=== PATIENT | female | born 1950 | race Caucasian/White ===

== ENCOUNTER 2019-12-10 05:04 | Inpatient (IN) ==
--- NOTE | 2019-11-26 22:07 | PAT Medication Instructions ---
Medication Instructions Date of Service November 26, 2019 Home Medications Cbd Oil 1 dose PO DAILY aspirin 325 mg PO DAILY PRN black cohosh 1 cap PO DAILY PRN calcium carbonate [Calcium 500] 500 mg PO DAILY cranberry 500 mg PO DAILY multivitamin with minerals [Hair,Skin and Nails] 1 tab PO DAILY omega 2-kkv-vmf-fish oil [[place]-3] 1 cap PO DAILY ASK your surgeon for instructions aspirin 325 mg PO DAILY PRN STOP taking 2 weeks before surgery If surgery is within 2 weeks, stop taking as soon as possible. black cohosh 1 cap PO DAILY PRN cranberry 500 mg PO DAILY omega 2-rvy-ujo-fish oil [[place]-3] 1 cap PO DAILY DO NOT take the morning of surgery Cbd Oil 1 dose PO DAILY calcium carbonate [Calcium 500] 500 mg PO DAILY multivitamin with minerals [Hair,Skin and Nails] 1 tab PO DAILY Other Notes If you have any questions please call us at [phone] or [phone] or [phone] or [phone]
--- NOTE | 2019-11-27 13:55 | Anesthesiology Consultation ---
Date of Service November 27, 2019 Assessment & Plan (1) Encounter for pre-operative examination: COVID Status: As of 11/26 assessment, patient denies travel to endemic area, known exposure/sick contacts, or symptoms of COVID19. Patient's MADELAINE works at [employer] [place], but she has not seen her/been around her in > 1 month. Instructed to remain away from [facility] from now until after surgery; pt agreeable. Patient instructed to follow strict social distancing guidelines, wear a mask in public and avoid travel for 14 days prior to surgery. Preoperative COVID19 testing to be completed prior to surgery. Patient made aware to self-isolate as much as possible between COVID testing and surgery. Chart Review Chart Review: Acceptable Risk for Surgery and Patient seen in Pre Admission Testing Teaching & Discussion Instructed NPO after midnight before surgery, except medications with 15 cc of water. Medication instructions provided according to the PAT guidelines. History Surgery Operation Date: 12/10/19 10:15 Proposed Procedures p Left Shoulder Reversed Total Shoulder Arthroplasty, Distal Clavical Exision, Excision Calcific Deposit, Biceps Tenodesis, Bone Graft Glenoid Cyst with Humeral Head Autograft - Marino Bhagat MD Height/Weight Height: 5 ft 3 in Weight: 95.3 kg Allergies Allergy/AdvReac Type Severity Reaction Status Date / Time No Known Allergies Allergy Verified 11/26/19 08:02 Medications Home Medications Medication Instructions Recorded Confirmed Last Taken Cbd Oil 1 dose PO DAILY 11/26/19 11/26/19 Unknown aspirin 325 mg PO DAILY PRN 11/26/19 11/26/19 Unknown black cohosh 1 cap PO DAILY PRN 11/26/19 11/26/19 Unknown calcium carbonate [Calcium 500] 500 mg PO DAILY 11/26/19 11/26/19 Unknown cranberry 500 mg PO DAILY 11/26/19 11/26/19 Unknown multivitamin with minerals 1 tab PO DAILY 11/26/19 11/26/19 Unknown [Hair,Skin and Nails] omega 9-ojp-hhk-fish oil [[place]-3] 1 cap PO DAILY 11/26/19 11/26/19 Unknown Past Medical History Medical History (Updated 11/30/19 @ 08:17 by Abiodun Patino) Cardiac murmur Mild mitral and aortic regurgitation per 2019 echo Degenerative disc disease Osteoarthritis Prediabetes no meds Exercise / Class Metabolic Activity II 4-5 Yardwork/Stairs/Walk up hill (Denies CP or SOB with 1 FOS) Past Surgical History Surgical History History of arthroscopy of right knee History of carpal tunnel release Rt History of cataract surgery BL History of colonoscopy History of D&C x3 History of repair of rotator cuff Rt History of tonsillectomy Past Anesthesia History No Hx of Anesthesia Complications and No Family Hx of Anesthesia Complications History of PONV No Hx of PONV and No Hx of Motion Sickness Social History Smoking Status: Former smoker Do You Dip or Chew Tobacco: No Smoking End Date: 1970 Hx Alcohol Use: No Hx Substance Use: No substance use type: does not use Review of Systems Pt denies any recent chest pain, shortness of breath, palpitations, cough, fever or URI. Physical Exam Vital Signs BP: 113/72 P: 74bpm SPO2: 96% RA T: 98.0 F R: 16 Constitutional + obese ENMT Mouth: no dental restorations, no chipped teeth and no loose teeth Thyromental Distance: > or= 3.5 Finger Breadths (3.5) Mallampati Class: I Neck normal visual inspection; neck extension not limited Respiratory normal respiratory effort Auscultation: lungs clear to auscultation bilaterally Cardiovascular Rate/Rhythm: regular rate and regular rhythm Heart Sounds: no murmur Extremities: no edema Testing Laboratory Results 11/27/19 14:01 11/27/19 14:01 PT 10.3 Seconds (9.0-12.0) 11/27/19 14:01 INR 1.0 (0.9-1.1) 11/27/19 14:01 APTT 27.6 Seconds (21.0-31.0) 11/27/19 14:01 Hemoglobin A1c 6.1 % (4.5-5.6) H 11/27/19 14:01 Urine Color Yellow 11/27/19 14:01 Urine Appearance Clear (Clear) 11/27/19 14:01 Urine pH 6.5 (4.5-7.5) 11/27/19 14:01 Ur Specific [place] 1.015 (1.000-1.030) 11/27/19 14:01 Urine Protein Negative (Negative) 11/27/19 14:01 Urine Glucose (UA) Negative (Negative) 11/27/19 14:01 Urine Ketones Negative (Negative) 11/27/19 14:01 Urine Nitrite Negative (Negative) 11/27/19 14:01 Ur Leukocyte Esterase Negative (Negative) 11/27/19 14:01 Blood Type B Positive 11/27/19 14:01 Antibody Screen NEGATIVE 11/27/19 14:01 Electrocardiogram Date: 01/21/19 Findings: + NSR @ (69bpm with 1st degree AV block) Chest X-Ray Date: 11/27/19 Findings: + NAD Echocardiogram Date: 01/28/19 EF: 55% LV Function: normal Valvular Disease: + AI (mild) and + MR (mild)
--- NOTE | 2019-11-27 14:25 | XRay Report ---
XR chest Pre-admission PA/Lat CLINICAL HISTORY: pat preoperative COMPARISON STUDY: No previous studies for comparison. FINDINGS: The bones soft tissues and hemidiaphragms are normal. The cardiomediastinal silhouette is n ormal. The lungs are clear. The pulmonary vasculature is normal. IMPRESSION: Negative chest. ACT 112: Negative or not required by law. The above report was generated using voice recognition software. It may contain grammatical, syntax or spelling errors. Electronically signed by: Bryce Veras M.D. 11/27/2019 2:24 PM
[2019-11-27 16:15] LABS: Basophils # (auto) 0.03 K/uL (0-0.2); Basophils % (auto) 0.4 %; Eosinophils # (auto) 0.16 K/uL (0-0.5); Eosinophils % (auto) 2.1 %; Hemoglobin 14.4 g/dL (12.0-16.0); Immature Granulocytes # (auto) 0.01 K/uL (0.00-0.02); Immature Granulocytes % (auto) 0.1 %; Lymphocytes # (auto) 2.87 K/uL (1.2-3.4); Lymphocytes % (auto) 36.8 %; Mean Corpuscular Hemoglobin 29.3 pg (25-34); Mean Corpuscular Hgb Conc 33.5 g/dL (32-36); Mean Corpuscular Volume 87.6 fL (80-100); Mean Platelet Volume 10.6 fL (7.4-10.4); Monocytes # (auto) 0.51 K/uL (0.11-0.59); Monocytes % (auto) 6.5 %; Neutrophils # (auto) 4.22 K/uL (1.4-6.5); Neutrophils % (auto) 54.1 %; Platelet Count 205 K/uL (130-400); RDW Coefficient of Variation 13.4 % (11.5-14.5); RDW Standard Deviation 42.7 fL (36.4-46.3); Red Blood Count 4.91 M/uL (4.2-5.4)
[2019-11-27 16:21] LABS: Albumin Level 3.5 gm/dl (3.4-5.0); BUN Creatinine Ratio 22.3 (10-20); Calcium 8.7 mg/dl (8.5-10.1); Creatinine Clr Calc Pharmacy 84.6 ml/min; Est GFR (African American) 102.5; Est GFR (Non-African American) 88.4; Potassium 3.8 mmol/L (3.5-5.1)
[2019-11-27 16:25] LABS: Appearance Urine Clear (Clear); Bilirubin Urine Negative (Negative); Blood Urine Negative (Negative); Color Urine Yellow; Glucose Urine UA Negative (Negative); Ketones Urine Negative (Negative); Leukocyte Esterase Urine Negative (Negative); Nitrite Urine Negative (Negative); Protein Urine Negative (Negative); Specific Gravity Urine 1.015 (1.000-1.030); Urobilinogen Urine Negative (Negative); pH Urine 6.5 (4.5-7.5)
[2019-11-27 16:31] LABS: Partial Thromboplastin Time 27.6 Seconds (21.0-31.0); Prothrombin Time 10.3 Seconds (9.0-12.0)
[2019-11-28 07:17] LABS: Estimated Average Glucose 128 mg/dl; Hemoglobin A1C 6.1 % (4.5-5.6)
--- NOTE | 2019-12-09 18:29 | History and Physical Report ---
DATE OF ADMISSION: 12/10/2019 CHIEF COMPLAINT: Chronic left shoulder pain and weakness. HISTORY OF PRESENT ILLNESS: This is a 69-year-old female patient of Dr. Bhagat'dillon complaining of chronic left shoulder pain, longstanding, now progressively getting worse. She reports no trauma. She also has failed conservative treatment including aspirin, and CDB oil. An MRI confirmed an insufficient rotator cuff, calcific tendinitis and biceps tendinopathy. The patient wished to proceed with a left shoulder reverse total shoulder arthroplasty, distal clavicle excision, excision of calcific deposit, biceps tenodesis and bone graft of the glenoid cyst with humeral head autograft. PAST MEDICAL HISTORY: Heart murmur, peripheral neuropathy, osteoarthritis, sciatica, obesity. SOCIAL HISTORY: Nonsmoker and nondrinker. PAST SURGICAL HISTORY: Tonsillectomy, D and C x2, right rotator cuff, right carpal tunnel, right meniscus repair on the right knee, cataract surgery bilateral eyes. FAMILY HISTORY: Noncontributory. REVIEW OF SYSTEMS: Chronic left shoulder pain and weakness. Otherwise, denies any shortness of breath, chest pain, nausea, vomiting or any other joint complaints. MEDICATIONS: 1. Biotin 2500 mg daily. 2. Calcium 600 mg plus D daily. 3. Cranberry 1500 mg daily. 4. Duff 3 fish oil daily. 5. Black cohosh 40 mg 2 capsules when needed. 6. Aspirin 325 mg as needed. 7. Hemp oil as needed in the form of drops. ALLERGIES: No known drug allergies. PHYSICAL EXAMINATION: GENERAL: Well-developed, well-nourished 69-year-old female in no acute distress. She is alert and oriented x3 and pleasant. HEENT: Normocephalic, atraumatic. Extraocular motions are intact. Pupils are equal and reactive to light. HEART: Regular rate and rhythm with 1/6 murmur appreciated. LUNGS: Clear. ABDOMEN: Soft, nontender, bowel sounds are present. EXTREMITIES: Left shoulder reveals active range of motion to 140 degrees, passively to 165. She has pain and crepitation with passive and active range of motion. Neurologically and neurovascularly, she is intact in her left extremity. DIAGNOSES: Left shoulder rotator cuff insufficiency, acromioclavicular joint arthritis, calcific tendinitis, biceps tendinitis. She also has a history of heart murmur, peripheral neuropathy, osteoarthritis, sciatica, obesity. PLAN: The patient was advised of her diagnosis. Indications, risks, benefits, postop course have all been reviewed. The patient wished to proceed with a left shoulder reverse total shoulder arthroplasty, distal clavicle excision, excision of calcific deposit, biceps tenodesis and bone grafting of the glenoid cyst with humeral head autograft. Necessary consent forms, preoperative testing and clearances will be obtained.
[2019-12-10] MEDS ORDERED: dexAMETHasone 4 MG TAB PO SCH (06:00)
[2019-12-10] MEDS ORDERED: METOCLOPRAMIDE HCL 10 MG TABLET PO SCH (06:00)
[2019-12-10] MEDS ORDERED: CEFAZOLIN 2000MG 2,000 MG/15 ML SYR IV SCH (06:00)
[2019-12-10] MEDS ORDERED: ACETAMINOPHEN 500 MG TAB PO SCH (06:00)
[2019-12-10] MEDS ORDERED: CeleBREX 200 MG CAP PO SCH (06:00)
[2019-12-10] MEDS ORDERED: FAMOTIDINE 20 MG TAB PO SCH (06:00)
[2019-12-10] MEDS ORDERED: LR 15ML/HR IV SCH (06:00)
[2019-12-10] MEDS ORDERED: GABAPENTIN 300 MG CAP PO SCH (06:00)
[2019-12-10] MEDS ORDERED: BUPIVACAINE/EPINEPHRINE 0.25% 1:200,000 30 ML VIAL ONE (06:23)
[2019-12-10] MEDS ORDERED: fentaNYL citrate 100 MCG/2 ML VIAL ONE (06:27)
[2019-12-10] MEDS ORDERED: MIDAZOLAM HCL 1 MG/ML 2ML VIAL ONE (06:27)
[2019-12-10] MEDS ORDERED: PROPOFOL IV EMULSION 10 MG/ML 20 ML VIAL IV ONE (06:28)
[2019-12-10] MEDS ORDERED: ONDANSETRON INJ 2 MG/ML 2 ML VIAL ONE (06:29)
[2019-12-10] MEDS ORDERED: DEXAMETHASONE SOD INJ 4 MG/ML VIAL ONE (06:29)
[2019-12-10] MEDS ORDERED: ROCURONIUM BROMIDE 10 MG/ML 5 ML VIAL IV ONE (06:29)
[2019-12-10] MEDS ORDERED: ATROPINE SULFATE 0.1 MG/ML 10ML SYR IV PRN (06:42)
[2019-12-10] MEDS ORDERED: fentaNYL citrate 100 MCG/2 ML VIAL IV PRN (06:42)
[2019-12-10] MEDS ORDERED: PROMETHAZINE HCL 12.5 MG in SODIUM CHLORIDE 0.9% 50 ML IV PRN (06:42)
[2019-12-10] MEDS ORDERED: HYDROmorphone INJ 1 MG/ML SYRINGE IV PRN (06:42)
[2019-12-10] MEDS ORDERED: ONDANSETRON INJ 2 MG/ML 2 ML VIAL IV PRN ×2 (06:42→11:37)
[2019-12-10] MEDS ORDERED: ePHEDrine sulfate 50 MG/ML AMP IV PRN (06:42)
--- NOTE | 2019-12-10 07:13 | History & Physical Bridge Note ---
Date of Service December 10, 2019 History & Physical Bridge Note I have examined the patient, reviewed the History & Physical and in the interval since the performance of the History & Physical I have noted the following changes of clinical significance: no changes noted
[2019-12-10] MEDS ORDERED: TRANEXAMIC ACID / 0.7% NACL 1000MG/100ML BAG IV ONE (07:19)
[2019-12-10] MEDS ORDERED: BACITRACIN INJ 50,000 UNIT VIAL ONE (07:20)
[2019-12-10] MEDS ORDERED: TRANEXAMIC ACID / 0.7% NACL 1,000 MG/100 ML BAG IV STA (07:31)
[2019-12-10] MEDS ORDERED: TRANEXAMIC ACID / 0.7% NACL 1,000 MG/100 ML BAG IV ONE (08:00)
[2019-12-10] MEDS ORDERED: NEOSTIGMINE METHYLSULFATE 5 MG/5 ML SYR ONE (08:52)
[2019-12-10] MEDS ORDERED: GLYCOPYRROLATE 0.2 MG/ML VIAL ONE (08:53)
[2019-12-10] MEDS ORDERED: ePHEDrine sulfate 50 MG/ML AMP ONE ×2 (09:20)
--- NOTE | 2019-12-10 10:35 | Post Operative Brief Note ---
Immediate Post Op Note v1 Date of Surgery December 10, 2019 Pre & Post Diagnosis Operation Date: 12/10/19 07:15 Pre-Op Diagnosis: LEFT SHOULDER OSTEOARTHRITIS, CALCIFIC TENDONITIS & BICIPITAL TENDONITIS, GLENOHUMERAL OSTEOARTHRITIS, BONE CYST GLENOID, ACROMIOCLAVICULAR JOINT OSTEOARTHRITIS Post-Op Diagnosis: LEFT SHOULDER OSTEOARTHRITIS, CALCIFIC TENDONITIS & BICIPITAL TENDONITIS, GLENOHUMERAL OSTEOARTHRITIS, BONE CYST GLENOID, ACROMIOCLAVICULAR JOINT OSTEOARTHRITIS I identified the patient and participated in the time-out.: Yes Procedure Operation Date: 12/10/19 07:15 Actual Procedures p Left Reversed Total Shoulder Arthroplasty, Distal Clavical Exision, Excision Calcific Deposit, Biceps Tenodesis, Bone Graft Glenoid Cyst with Humeral Head Autograft(Left) - Marino Bhagat MD Surgeon Marino Bhagat MD Diagnostic Cardiac Sonographer JUAN PABLO Boo Estimated Blood Loss 50 Findings Consistent with Post-Op Diagnosis Specimens Bone cyst material and humeral head Drains Hemovac Drain Anesthesia Type General Regional Complications none Disposition Accompanied Patient To Recovery: No Disposition: Recovery Room Overlapping Procedure I was immediately available: during the entire case.
--- NOTE | 2019-12-10 10:52 | Operative Report ---
Post Operative Report Pre & Post Diagnosis Operation Date: 12/10/19 07:15 Pre-Op Diagnosis: LEFT SHOULDER OSTEOARTHRITIS, CALCIFIC TENDONITIS & BICIPITAL TENDONITIS, GLENOHUMERAL OSTEOARTHRITIS, BONE CYST GLENOID, ACROMIOCLAVICULAR JOINT OSTEOARTHRITIS Post-Op Diagnosis: LEFT SHOULDER OSTEOARTHRITIS, CALCIFIC TENDONITIS & BICIPITAL TENDONITIS, GLENOHUMERAL OSTEOARTHRITIS, BONE CYST GLENOID, ACROMIOCLAVICULAR JOINT OSTEOARTHRITIS I identified the patient and participated in the time-out.: Yes Procedure Operation Date: 12/10/19 07:15 Actual Procedures p Left Reversed Total Shoulder Arthroplasty, Distal Clavical Exision, Excision Calcific Deposit, Biceps Tenodesis, Bone Graft Glenoid Cyst with Humeral Head Autograft(Left) - Marino Bhagat MD Surgeon Marino Bhagat MD Sales Account Leader JUAN PABLO Boo Estimated Blood Loss 50 Findings Consistent with Post-Op Diagnosis Specimens Humeral head and curetted bone and bone cyst material and distal clavicle Drains 2 Hemovac Anesthesia Type General Regional Complications none Disposition Accompanied Patient To Recovery: No Disposition: Recovery Room Indications 69-year-old female with chronic osteoarthritis glenohumeral joint with calcific tendinitis of the infraspinatus and AC joint osteoarthritis. On MRI she has a very large subchondral cyst of the glenoid appears to be a large subchondral bone cyst. There is other smaller bone cyst noted and subchondral bone of the glenoid. She is not 100% [id number] however she does have moderately advanced glenohumeral osteoarthritis. Rotator cuff has some incomplete tearing of the supraspinatus with tendinopathy and calcific tendinitis. Description of Procedure The patient was taken to the operating room and anesthetized under regional block and general anesthetic. The patient was positioned on the operating table in a 30 beachchair position with a towel roll under the medial border of the left scapula. The arm was draped free to be able to manipulate the shoulder as needed. The left upper extremity was prepped and draped in usual sterile fashion. Exam demonstrated 140 degrees of flexion, 80 degrees of abduction, 45 degrees external rotation, 45 degrees internal rotation.. An anterior deltopectoral approach was performed. A longitudinal incision was made in the deltopectoral interval. The skin was incised sharply. Subcutaneous flaps were elevated off the fascia. The cephalic vein was dissected out and retracted lateral with the deltoid. The clavipectoral fascia was divided at the lateral margin of the conjoined tendon and extended up to the CA ligament. The following findings were noted: The rotator cuff was intact with some chronic bursitis and a calcium deposit identified in the infraspinatus. The infraspinatus calcium deposit was verified with a spinal needle barbotage into the capsule deposit and they were able to open it up and excised the capsular material with a rongeur leaving a small defect. The upper centimeter of the pectoralis was released for inferior exposure. The biceps tendon findings demonstrated intact biceps tendon with some chronic tenosynovitis.. the biceps tendon was tenodesed to the pectoralis tendon with #2 FiberWire. The proximal biceps was resected. The subscapularis tendon was taken down off the lesser tuberosity using a subperiosteal dissection. A #1 Vicryl traction suture was placed into the free end of the subscapularis tendon and capsule. The subscapular muscle fibers were split longitudinally at the level of the circumflex vessels. The circumflex vessels were identified and tied off with silk ties and divided laterally. A Kitner elevator was used to free up the inferior fibers of the subscapularis off of the capsule. The axillary nerve was identified with a tug test and protected with a blunt Judith retractor between the nerve and the capsule. The subscapularis tendon was then taken down off of the lesser tuberosity subperiosteally and subperiosteal dissection was performed along the neck of the humerus as the arm is gradually externally rotated exposing the humeral head. The humeral head findings d emonstrated inferior humeral osteophytes and articular thinning and wear consistent with grade III chondromalacia. retractors were readjusted and the inferior osteophytes were all resected using an artist chisel. A Deras elevator was used to assist in releasing the capsule of the neck of the humerus. The capsule was divided with Kaur scissors down to the glenoid released off the anterior glenoid and the rotator interval was released to meet the capsular release and a 360 release of the subscapularis was accomplished. A Fukuda retractor was placed into the joint retracting the humeral head posterior. Glenoid findings demonstrated grade 3 close to grade IV chondromalacia with some subchondral cysts in the inferior posterior glenoid. Degenerative changes glenoid labrum and tendinopathy biceps intra-articular segment.. The labrum and biceps tendon was resected. an anterior-inferior and posterior inferior capsular release were performed with electrocautery and a Deras elevator on bone with the axillary nerve protected inferiorly by the retractor. Attention was then taken to the humeral preparation. The cutting guide was placed into the humeral head. It was positioned at 20 of retroversion. Oscillating saw was used to resect the humeral head giving the cut above the level of the posterior rotator cuff insertion site. The humerus was then prepared for the stem. I used the ascend flex stem from [employer]. The sizing broaches were used followed by trial broaches up to a size 3B long which had the appropriate fit and fill. The appropriate sized cut protector was placed. The humerus was then retracted posterior to the glenoid. The glenoid was sized for a 25 mm. The guide for the baseplate was positioned in a 10 inferior tilt and the central drill hole was made. The reamer for the 25 baseplate was used. The central drill was widened for the peg. After the reaming I was able to identify some of the cysts and do curettage of the cysts with an angled curette. The large subchondral cyst was curetted out some of the material sent for specimen. The appearance was a benign appearing large subchondral cyst. After this was thoroughly curetted out the bone cysts were bone grafted with cancellus bone graft obtained from the humeral head cut. Bone tamp was used and 1 large cyst was accessed through the central peg hole wall and through that opening where able to placed bone graft into the cyst and then placed a drill on reversed to impact the graft into position and leave room for the peg. The 25 mm aequalis hydroxyapatite-coated baseplate was impacted into position. The base plate was transfixed with superior and inferior locking screws and anterior and posterior compression screws with stable fixation. The fan reamer was used for the standard 36 millimeter glenoid sphere. After irrigation the standard 36 mm glenoid sphere was impacted onto the baseplate and the screw was tightened. Attention was taken back to the humerus. The cut protector was removed and the high offset +0 humeral tray trial was assembled to the trial stem rotated appropriately to get bony coverage and then screwed in position. A trial reduction was performed. A +6 x 36 trial insert demonstrated good stability and no shuck. The trials were removed. 3 drill holes are made into the harder bone in the bicipital groove area and 3 #5 FiberWire sutures were placed transosseously. The canal was irrigated with antibiotic solution with bacitracin. The final component was assembled. The final component was ascend flex 3B long humeral stem assembled to +0 high offset humeral tray with 36+6 humeral polyethylene insert. This was then impacted into the humerus with a tight press-fit. It was reduced to the glenoid sphere. Stability was verified. Subscapularis was repaired with the #5 FiberWire sutures using Meir-Dimitri suture technique. Lateral row soft tissue repair was performed with #2 FiberWire [id number] sutures. The pectoralis was repaired with #2 FiberWire [id number]-[id number] sutures reinforcing the biceps tendon tenodesis. The arm was taken through a range of motion which demonstrated 140 degrees flexion 45 degrees external rotation and 90 degrees abduction without tension on repair. The implant was stable through the range of motion tested. The wound was copiously irrigated. Attention was taken to the distal clavicle excision. A transverse incision was made across the distal clavicle about 3 cm. Subcutaneous flaps elevated off the fascia and the fascia was divided longitudinally and reflected off the distal clavicle which was excised with an oscillating saw removing 1 cm. The distal clavicle had bone spurs and arthritic changes consistent with osteoarthritis. After irrigation the deltoid trapezius fascia was repaired with [id number] #2 FiberWire sutures. The subcutaneous tissues were closed with interrupted 2-0 Vicryl sutures and skin closed with cuong. 2 Hemovac drains were placed. The deltopectoral interval was closed with lbgfrq-[id number] #1 Vicryl sutures. The subcutaneous tissues were closed with 2-0 Vicryl sutures. The skin was closed with cuong. Sterile dressings were applied and a shoulder immobilizer. JUAN PABLO Boo my physician commercial real estate assistant assisted in the procedure to the entire procedure including patient positioning arm positioning prepping and draping soft tissue retraction instrument management suture management and performed the subcutaneous and skin closure and will participate in the postoperative care of the patient. I attest to the content of the Intraoperative Record and any orders documented therein. Any exceptions are noted below.
--- NOTE | 2019-12-10 11:08 | XRay Report ---
XR shoulder LT min 2V routine CLINICAL HISTORY: Post shoulder surgery COMPARISON: None. DISCUSSION: There are postsurgical changes of a reverse total left shoulder arthroplasty. There are o verlying skin cuong and surgical drains. There is air present in the soft tissues consistent with r ecent surgery. There is no dislocation. There are left lower lung zone airspace opacities statistical ly atelectatic. IMPRESSION: Postsurgical changes of a reverse total left shoulder arthroplasty. ACT 112: Negative or not required by law. Electronically signed by: Hernandez Bruner M.D. 12/10/2019 11:06 AM
--- NOTE | 2019-12-10 11:14 | Anesthesiology Progress Note ---
Date of Service December 10, 2019 Anesthesia Post Procedure Vital Signs Vital Signs: Temp Pulse Pulse Resp BP Pulse Ox 12/10/19 11:00 95 H 23 158/82 H 94 12/10/19 10:50 104 H 22 160/84 H 97 12/10/19 10:40 105 H 25 H 150/86 H 95 12/10/19 10:34 36.0 C L 100 H 25 H 158/81 H 96 12/10/19 06:05 69 18 132/69 97 12/10/19 05:31 36.7 C 72 20 157/89 H 98 Transfer of Care Handoff Completed per policy Notes Mental Status: alert / awake / arousable and participated in evaluation Patient Amnestic to Procedure: Yes Nausea / Vomiting: adequately controlled Pain: adequately controlled Airway Patency, RR, SpO2: stable & adequate BP & HR: stable & adequate Hydration State: stable & adequate Anesthetic Complications: no major complications apparent and Pt Satisfied with anesthetic care
[2019-12-10] MEDS ORDERED: bisacodyL 10 MG SUPP PR PRN (11:37)
[2019-12-10] MEDS ORDERED: NALOXONE HCL 0.4 MG/1 ML VIAL/CARP IV PRN (11:37)
[2019-12-10] MEDS ORDERED: MAGNESIUM HYDROXIDE SUSP 30 ML UDC PO PRN (11:37)
[2019-12-10] MEDS ORDERED: ASPIRIN 325 MG ECTAB PO PRN (11:37)
[2019-12-10] MEDS: SODIUM CHLORIDE 0.9% 1000ML 1,000 ML IV SCH ×2 (12:06→22:02)
[2019-12-10] MEDS: TRAMADOL HCL 50 MG TABLET PO PRN (12:11)
--- NOTE | 2019-12-10 13:19 | Hospitalist Consultation ---
Date of Consultation December 10, 2019 Assessment & Plan (1) S/P shoulder replacement: This is a 69-year-old female with PMH of prediabetes, HLD and OA who is POD#0 s/p L reverse TSA by Dr. Bhagat. -POD#0 s/p L reverse TSA by Dr. Bhagat. -Pt is doing well post-operatively -Per ortho for pain control, wound care, anticoagulation and activities -Monitor H&H (pre-op hgb 15 from Jul 202, EBL 20ml), continue incentive spirometry, PT/OT when appropriate (2) Prediabetes: A1c of 6.0 in Jul. Repeat pending -Diabetic diet, SSI while in-patient -BSG AC HS (3) HLD (hyperlipidemia): Fish oil supplementation held by primary service PCP: [place] Dispo: Per primary service Thank you for this consultation. We will follow the patient with you during their hospital stay. You can reach a member of the [facility] 24/12 via pager @ [phone]. Patient seen in collaboration with Dr. Hernandez. Please see addendum. Supervising Physician Co-Signing Physician Notes HISTORY: Record reviewed. Patient interviewed and examined. Care coordinated with Crystal Alexander PA-C. Please refer to her documentation for complete history. Briefly, 69 YO F with history of prediabetes and dyslipidemia. Underwent left reversed should arthroplasty earlier today by Dr. Bhagat. Doing well postoperatively. No chest pain, cough, SOB, nausea, vomiting. Pain well-controlled. EXAM: General- no distress Lungs- clear to auscultation; no respiratory distress Cardiovascular- RRR; II-III/ systolic murmur at base; no gallop; no JVD; no pretibial edema Abdomen- + bowel sounds, soft, nontender Extremities- no cyanosis; no calf tenderness ; LUE immobilized Neuro- alert, oriented Skin- warm & dry DATA: FBS this morning 105. ASSESSMENT AND PLAN: S/P POD # 0. HEART MURMUR Echo 2019 showed trileaflet aortic valve, mild aortic regurgitation, mild mitral regurgitation, trace tricuspid regurgitation. Please refer to JUAN PABLO Alexander's documentation for discussion of other issues. Thank you for this consultation. We will follow the patient with you during their hospital stay. My cell # is [phone]. You can reach a member of the [facility] Team 24/12 via pager @ [phone]. History of Present Illness Reason for Consultation: Postop medical management Attending Physician: Marino Bhagat MD History of Present Illness This is a 69-year-old female with PMH of prediabetes, HLD and OA who is POD#0 s/p L reverse TSA by Dr. Bhagat. Patient is feeling well postoperatively. Denies surgical site pain. Tolerating diet without nausea. Denies fever, chills, congestion, cough, chest pain, shortness of breath, vomiting, abdominal pain, dysuria, diarrhea or constipation. Last bowel movement was this morning. PCP is Dr. Thibodeaux. Allergies Allergy/AdvReac Type Severity Reaction Status Date / Time No Known Allergies Allergy Verified 11/26/19 08:02 Home Medications Home Medications Medication Instructions Recorded Confirmed Type Cbd Oil 1 dose PO DAILY 11/26/19 12/10/19 History aspirin 325 mg PO DAILY PRN 11/26/19 12/10/19 History black cohosh 1 cap PO DAILY PRN 11/26/19 11/26/19 History calcium carbonate [Calcium 500] 500 mg PO DAILY 11/26/19 11/26/19 History cranberry 500 mg PO DAILY 11/26/19 11/26/19 History multivitamin with minerals 1 tab PO DAILY 11/26/19 12/10/19 History [Hair,Skin and Nails] omega 6-zst-rpr-fish oil [[place]-3] 1 cap PO DAILY 11/26/19 11/26/19 History Patient History Medical History (Updated 12/10/19 @ 13:53 by Crystal Alexander PA-C) Degenerative disc disease HLD (hyperlipidemia) Osteoarthritis Prediabetes Surgical History History of arthroscopy of right knee History of carpal tunnel release Rt History of cataract surgery BL History of colonoscopy History of D&C x3 History of repair of rotator cuff Rt History of tonsillectomy Family History (Updated 12/10/19 @ 13:53 by Crystal Alexander PA-C) Grandmother (Maternal) Diabetes Other Heart disease No family history of adverse response to anesthesia Social History Preferred Language: Bengali Communication Ability: Effective 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 Physical Exam Physical Exam: General Appearance: WD/WN, vitals as above, NAD, sitting up in bed eating lunch, pleasant, conversing easily Head: normocephalic, atraumatic Eyes: normal inspection, PERRL, conjunctivae normal, anicteric sclerae ENT: external ear and nose normal, oropharynx normal Neck: trachea midline, no thyromegaly normal visual inspection Respiratory: normal respiratory effort, lungs clear to auscultation, no wheeze, rales, rhonchi Cardiovascular: regular rate, rhythm, no murmur appreciated, normal peripheral pulses Chest: normal inspection of chest Abdomen/GI: normal bowel sounds, soft, nontender, no hepatosplenomegaly Extremities/Musculoskeletal: + L shoulder surgical dressing clean, dry, intact. + drain visualized. Distal LUE strength intact. Normal cap refill, no cyanosis or clubbing Neurologic: PERRL, CN's II-XI intact bilaterally and moves all extremities Psychiatric: A+Ox3, euthymic affect Skin: no rashes, normal color, warm/dry Results & Data Results & Data ([facility]) Vital Signs (Past 12 Hours) Vital Signs Temp Pulse Pulse Resp BP Pulse Ox 12/10/19 12:30 36.4 C L 96 H 16 122/81 92 12/10/19 12:01 36 C L 96 H 18 133/73 92 12/10/19 11:30 36.5 C 95 H 18 159/83 H 94 12/10/19 11:10 36.3 C L 96 H 22 157/86 H 96 12/10/19 11:00 95 H 23 158/82 H 94 12/10/19 10:50 104 H 22 160/84 H 97 12/10/19 10:40 105 H 25 H 150/86 H 95 12/10/19 10:34 36.0 C L 100 H 25 H 158/81 H 96 12/10/19 06:05 69 18 132/69 97 12/10/19 05:31 36.7 C 72 20 157/89 H 98
[2019-12-10] MEDS ORDERED: CARBOHYDRATES FOR HYPOGLYCEMIA PO PRN (13:20)
[2019-12-10] MEDS ORDERED: GLUCOSE 10 TABS/TUBE PO PRN (13:20)
[2019-12-10] MEDS ORDERED: GLUCOSE 40% GEL 15 GM TUBE PO PRN (13:20)
[2019-12-10] MEDS ORDERED: DEXTROSE 50% 50 ML SYRINGE IV PRN (13:20)
[2019-12-10] MEDS ORDERED: GLUCAGON FOR INJ 1 MG VIAL SQ PRN (13:20)
[2019-12-10] MEDS: ACETAMINOPHEN 500 MG TAB PO SCH ×2 (13:48→22:02)
[2019-12-10] MEDS: CEFAZOLIN 2000MG 2,000 MG/15 ML SYR IV SCH (16:09)
[2019-12-10] MEDS ORDERED: COUGH DROP (SUGAR FREE) LOZ 24 LOZ/1 BOX BUCCAL PRN (16:21)
[2019-12-10] MEDS: INSULIN ASPART 100 UNITS/ML 3 ML PEN SC SCH ×2 (17:53→20:37)
[2019-12-10] MEDS: SENNA 8.6 MG TAB PO SCH (20:37)
[2019-12-10] MEDS: DOCUSATE SODIUM 100 MG CAP PO SCH (20:37)
[2019-12-11] MEDS: CEFAZOLIN 2000MG 2,000 MG/15 ML SYR IV SCH (00:55)
[2019-12-11] MEDS: TRAMADOL HCL 50 MG TABLET PO PRN ×4 (04:32→22:39)
[2019-12-11] MEDS: HYDROmorphone INJ 0.5 MG/0.5 ML SYR IV PRN ×2 (05:30→10:50)
[2019-12-11] MEDS: ACETAMINOPHEN 500 MG TAB PO SCH ×3 (05:31→21:10)
[2019-12-11 06:27] LABS: Basophils # (auto) 0.01 K/uL (0-0.2); Basophils % (auto) 0.1 %; Eosinophils # (auto) 0.01 K/uL (0-0.5); Eosinophils % (auto) 0.1 %; Hematocrit (blood only) 36.7 % (37-47); Hemoglobin 12.3 g/dL (12.0-16.0); Immature Granulocytes # (auto) 0.04 K/uL (0.00-0.02); Immature Granulocytes % (auto) 0.3 %; Lymphocytes % (auto) 16.2 %; Mean Corpuscular Hemoglobin 29.2 pg (25-34); Mean Corpuscular Hgb Conc 33.5 g/dL (32-36); Mean Corpuscular Volume 87.2 fL (80-100); Mean Platelet Volume 9.8 fL (7.4-10.4); Monocytes # (auto) 0.97 K/uL (0.11-0.59); Monocytes % (auto) 6.9 %; Neutrophils # (auto) 10.83 K/uL (1.4-6.5); Neutrophils % (auto) 76.4 %; Platelet Count 176 K/uL (130-400); RDW Coefficient of Variation 13.8 % (11.5-14.5); Red Blood Count 4.21 M/uL (4.2-5.4); White Blood Count 14.16 K/uL (4.8-10.8)
[2019-12-11 06:52] LABS: BUN Creatinine Ratio 18.5 (10-20); Creatinine Clr Calc Pharmacy 80.4 ml/min; Est GFR (Non-African American) 87.2; Potassium 3.8 mmol/L (3.5-5.1)
[2019-12-11 07:08] LABS: Estimated Average Glucose 128 mg/dl; Hemoglobin A1C 6.1 % (4.5-5.6)
--- NOTE | 2019-12-11 07:46 | Anesthesiology Progress Note ---
Date of Service December 11, 2019 Anesthesia Post Procedure Vital Signs Vital Signs: Temp Pulse Pulse Resp BP Pulse Ox 12/11/19 07:30 36.5 C 71 16 100/63 92 12/11/19 04:21 36.7 C 82 14 113/73 92 12/10/19 23:26 36.6 C 78 16 108/65 93 12/10/19 19:09 36.6 C 95 H 17 103/62 92 12/10/19 14:07 97 H 16 116/73 93 12/10/19 13:25 99 H 16 120/72 93 12/10/19 12:30 36.4 C L 96 H 16 122/81 92 12/10/19 12:01 36 C L 96 H 18 133/73 92 12/10/19 11:30 36.5 C 95 H 18 159/83 H 94 12/10/19 11:10 36.3 C L 96 H 22 157/86 H 96 12/10/19 11:00 95 H 23 158/82 H 94 12/10/19 10:50 104 H 22 160/84 H 97 12/10/19 10:40 105 H 25 H 150/86 H 95 12/10/19 10:34 36.0 C L 100 H 25 H 158/81 H 96 Pain Intensity Left Shoulder: Pain Intensity: 3 Notes Mental Status: alert / awake / arousable and participated in evaluation Patient Amnestic to Procedure: Yes Nausea / Vomiting: adequately controlled Pain: adequately controlled Airway Patency, RR, SpO2: stable & adequate BP & HR: stable & adequate Hydration State: stable & adequate Anesthetic Complications: no major complications apparent
[2019-12-11] MEDS: DOCUSATE SODIUM 100 MG CAP PO SCH ×2 (08:31→21:10)
[2019-12-11] MEDS: MULTIVITAMIN TAB PO SCH (08:32)
[2019-12-11] MEDS: CALCIUM CARBONATE 1250MG TAB PO SCH (08:32)
[2019-12-11] MEDS ORDERED: MULTIVITAMIN WITH MINERALS PO SCH (09:00)
--- NOTE | 2019-12-11 09:14 | Orthopedic Progress Note ---
Date of Service December 11, 2019 Assessment & Plan (1) S/P shoulder replacement: Postop day 1 status post left reverse total shoulder arthroplasty PT/OT protocols. Nonweightbearing left upper extremity. DVT prophylaxis with aspirin and SCDs. Continue current pain regimen. DC planning-patient planning for discharge to home when stable. Admission and Anticipated Discharge Date Admission Date: December 10, 2019 Subjective Postop day 1 Patient sitting at the bedside. Awake and alert. Pain is controlled. No complaints this morning. Denies shortness of breath, chest pain, lightheadedness. Physical Exam Physical Exam: Dressings are clean, dry, and intact. Hemovac is functioning and previous shift was 25 mL's. Neurovascular is intact. Sling is in place. Moving her fingers and wrist well. Results & Data ([facility]) Vital Signs (Past 12 Hours) Vital Signs Temp Pulse Resp BP Pulse Ox 12/11/19 07:30 36.5 C 71 16 100/63 92 12/11/19 04:21 36.7 C 82 14 113/73 92 12/10/19 23:26 36.6 C 78 16 108/65 93 Laboratory Results Laboratory Results WBC 14.16 K/uL (4.8-10.8) H 12/11/19 05:51 RBC 4.21 M/uL (4.2-5.4) 12/11/19 05:51 Hgb 12.3 g/dL (12.0-16.0) 12/11/19 05:51 Hct 36.7 % (37-47) L 12/11/19 05:51 MCV 87.2 fL (80-100) 12/11/19 05:51 MCH 29.2 pg (25-34) 12/11/19 05:51 MCHC 33.5 g/dL (32-36) 12/11/19 05:51 RDW Std Deviation 44.0 fL (36.4-46.3) 12/11/19 05:51 RDW Coeff of Tanna 13.8 % (11.5-14.5) 12/11/19 05:51 Plt Count 176 K/uL (130-400) 12/11/19 05:51 MPV 9.8 fL (7.4-10.4) 12/11/19 05:51 Immature Gran % (Auto) 0.3 % 12/11/19 05:51 Neut % (Auto) 76.4 % 12/11/19 05:51 Lymph % (Auto) 16.2 % 12/11/19 05:51 [place] % (Auto) 6.9 % 12/11/19 05:51 Eos % (Auto) 0.1 % 12/11/19 05:51 Baso % (Auto) 0.1 % 12/11/19 05:51 Neut # (Auto) 10.83 K/uL (1.4-6.5) H 12/11/19 05:51 Lymph # (Auto) 2.30 K/uL (1.2-3.4) 12/11/19 05:51 [place] # (Auto) 0.97 K/uL (0.11-0.59) H 12/11/19 05:51 Eos # (Auto) 0.01 K/uL (0-0.5) 12/11/19 05:51 Baso # (Auto) 0.01 K/uL (0-0.2) 12/11/19 05:51 Immature Gran # (Auto) 0.04 K/uL (0.00-0.02) H 12/11/19 05:51 PT 10.3 Seconds (9.0-12.0) 11/27/19 14:01 INR 1.0 (0.9-1.1) 11/27/19 14:01 APTT 27.6 Seconds (21.0-31.0) 11/27/19 14:01 PTT Ratio 1.0 11/27/19 14:01 Sodium 141 mmol/L (136-145) 12/11/19 05:51 Potassium 3.8 mmol/L (3.5-5.1) 12/11/19 05:51 Chloride 111 mmol/L (98-107) H 12/11/19 05:51 Carbon Dioxide 25 mmol/L (21-32) 12/11/19 05:51 Anion Gap 5.0 (3-11) 12/11/19 05:51 BUN 13 mg/dl (7-18) 12/11/19 05:51 Creatinine 0.70 mg/dl (0.6-1.2) 12/11/19 05:51 Est Cr Clr Drug Dosing 80.4 ml/min 12/11/19 05:51 Est GFR ( Amer) 101.0 12/11/19 05:51 Est GFR (Non-Af Amer) 87.2 12/11/19 05:51 BUN/Creatinine Ratio 18.5 (-20) 12/11/19 05:51 Glucose 104 mg/dl (70-99) H 12/11/19 05:51 POC Glucose 103 mg/dl (70-99) H 12/11/19 08:13 Estimat Average Glucose 128 mg/dl 12/11/19 05:51 Hemoglobin A1c 6.1 % (4.5-5.6) H 12/11/19 05:51 Calcium 8.0 mg/dl (8.5-10.1) L 12/11/19 05:51 Albumin 3.5 gm/dl (3.4-5.0) 11/27/19 14:01 Urine Color Yellow 11/27/19 14:01 Urine Appearance Clear (Clear) 11/27/19 14:01 Urine pH 6.5 (4.5-7.5) 11/27/19 14:01 Ur Specific [place] 1.015 (1.000-1.030) 11/27/19 14:01 Urine Protein Negative (Negative) 11/27/19 14:01 Urine Glucose (UA) Negative (Negative) 11/27/19 14:01 Urine Ketones Negative (Negative) 11/27/19 14:01 Urine Blood Negative (Negative) 11/27/19 14:01 Urine Nitrite Negative (Negative) 11/27/19 14:01 Urine Bilirubin Negative (Negative) 11/27/19 14:01 Urine Urobilinogen Negative (Negative) 11/27/19 14:01 Ur Leukocyte Esterase Negative (Negative) 11/27/19 14:01 Blood Type B Positive 11/27/19 14:01 Antibody Screen NEGATIVE 11/27/19 14:01
[2019-12-11] MEDS: INSULIN ASPART 100 UNITS/ML 3 ML PEN SC SCH ×4 (09:19→21:11)
--- NOTE | 2019-12-11 11:13 | Hospitalist Progress Note ---
Date of Service December 11, 2019 Assessment & Plan (1) S/P shoulder replacement: 69-year-old female with PMH of prediabetes, HLD and OA who is POD#1 s/p L reverse TSA by Dr. Bhagat. Patient doing well Hb is 12.3 WBC is 14.16 likely reactive Primary ortho team for pain control, wound care, anticoagulation and activities PT/OT (2) Prediabetes: A1c of 6.1 Diabetic diet, Insulin sliding scale while inpt BSG AC HS (3) HLD (hyperlipidemia): Fish oil supplementation held by primary service PCP: [place] Dispo: Per primary service Admission and Anticipated Discharge Date Admission Date: December 10, 2019 Subjective Patient seen and examined Reports left shoulder pain is well controlled on current regimen Reports no complaint Tolerating po well Passing flatus. Yet to move her bowel Denied any cough, shortness of breath or fevers Physical Exam Constitutional: + well hydrated and + obese; no acute distress Eyes: PERRL, conjunctivae normal, anicteric sclerae Respiratory: normal respiratory effort, lungs clear to auscultation Cardiovascular: Rate/Rhythm: regular rate and regular rhythm Heart Sounds: normal S1 and normal S2 No pedal edema Gastrointestinal (Abdomen): normal bowel sounds, soft, nontender, no hepatosplenomegaly Musculoskeletal: Left UE in sling. Dressing over left shoulder with drain insitu Neurologic: PERRL, EOMI, accommodation nl, no face palsy, no dysarthria Psychiatric: A+Ox3, euthymic affect Results & Data Results & Data ([facility]) Vital Signs (Past 12 Hours) Vital Signs Temp Pulse Resp BP Pulse Ox 12/11/19 07:30 36.5 C 71 16 100/63 92 12/11/19 04:21 36.7 C 82 14 113/73 92 12/10/19 23:26 36.6 C 78 16 108/65 93 Laboratory Results Laboratory Results - last 24 hr 12/10/19 12/10/19 12/11/19 17:04 20:06 05:51 WBC 14.16 H RBC 4.21 Hgb 12.3 Hct 36.7 L MCV 87.2 MCH 29.2 MCHC 33.5 RDW Std Deviation 44.0 RDW Coeff of Tanna 13.8 Plt Count 176 MPV 9.8 Immature Gran % (Auto) 0.3 Neut % (Auto) 76.4 Lymph % (Auto) 16.2 [place] % (Auto) 6.9 Eos % (Auto) 0.1 Baso % (Auto) 0.1 Neut # (Auto) 10.83 H Lymph # (Auto) 2.30 [place] # (Auto) 0.97 H Eos # (Auto) 0.01 Baso # (Auto) 0.01 Immature Gran # (Auto) 0.04 H Sodium Potassium Chloride Carbon Dioxide Anion Gap BUN Creatinine Est Cr Clr Drug Dosing Est GFR ( Amer) Est GFR (Non-Af Amer) BUN/Creatinine Ratio Glucose POC Glucose 141 H 134 H Estimat Average Glucose Hemoglobin A1c Calcium 12/11/19 12/11/19 12/11/19 05:51 05:51 08:13 WBC RBC Hgb Hct MCV MCH MCHC RDW Std Deviation RDW Coeff of Tanna Plt Count MPV Immature Gran % (Auto) Neut % (Auto) Lymph % (Auto) [place] % (Auto) Eos % (Auto) Baso % (Auto) Neut # (Auto) Lymph # (Auto) [place] # (Auto) Eos # (Auto) Baso # (Auto) Immature Gran # (Auto) Sodium 141 Potassium 3.8 Chloride 111 H Carbon Dioxide 25 Anion Gap 5.0 BUN 13 Creatinine 0.70 Est Cr Clr Drug Dosing 80.4 Est GFR ( Amer) 101.0 Est GFR (Non-Af Amer) 87.2 BUN/Creatinine Ratio 18.5 Glucose 104 H POC Glucose 103 H Estimat Average Glucose 128 Hemoglobin A1c 6.1 H Calcium 8.0 L 12/11/19 12:20 WBC RBC Hgb Hct MCV MCH MCHC RDW Std Deviation RDW Coeff of Tanna Plt Count MPV Immature Gran % (Auto) Neut % (Auto) Lymph % (Auto) [place] % (Auto) Eos % (Auto) Baso % (Auto) Neut # (Auto) Lymph # (Auto) [place] # (Auto) Eos # (Auto) Baso # (Auto) Immature Gran # (Auto) Sodium Potassium Chloride Carbon Dioxide Anion Gap BUN Creatinine Est Cr Clr Drug Dosing Est GFR ( Amer) Est GFR (Non-Af Amer) BUN/Creatinine Ratio Glucose POC Glucose 106 H Estimat Average Glucose Hemoglobin A1c Calcium
[2019-12-11] MEDS: SENNA 8.6 MG TAB PO SCH (21:10)
[2019-12-12] MEDS: ACETAMINOPHEN 500 MG TAB PO SCH (05:39)
[2019-12-12] MEDS: TRAMADOL HCL 50 MG TABLET PO PRN (06:14)
[2019-12-12 06:22] LABS: Basophils # (auto) 0.04 K/uL (0-0.2); Basophils % (auto) 0.3 %; Eosinophils # (auto) 0.17 K/uL (0-0.5); Eosinophils % (auto) 1.3 %; Hematocrit (blood only) 40.6 % (37-47); Hemoglobin 13.2 g/dL (12.0-16.0); Immature Granulocytes # (auto) 0.04 K/uL (0.00-0.02); Immature Granulocytes % (auto) 0.3 %; Lymphocytes # (auto) 3.99 K/uL (1.2-3.4); Lymphocytes % (auto) 31.6 %; Mean Corpuscular Hemoglobin 29.2 pg (25-34); Mean Corpuscular Hgb Conc 32.5 g/dL (32-36); Mean Corpuscular Volume 89.8 fL (80-100); Mean Platelet Volume 10.1 fL (7.4-10.4); Monocytes # (auto) 0.99 K/uL (0.11-0.59); Monocytes % (auto) 7.8 %; Neutrophils # (auto) 7.41 K/uL (1.4-6.5); Neutrophils % (auto) 58.7 %; Platelet Count 183 K/uL (130-400); RDW Coefficient of Variation 13.9 % (11.5-14.5); Red Blood Count 4.52 M/uL (4.2-5.4); White Blood Count 12.64 K/uL (4.8-10.8)
[2019-12-12 06:57] LABS: BUN Creatinine Ratio 20.1 (10-20); Calcium 8.7 mg/dl (8.5-10.1); Creatinine Clr Calc Pharmacy 79.3 ml/min; Est GFR (African American) 99.3; Est GFR (Non-African American) 85.7; Potassium 3.9 mmol/L (3.5-5.1)
--- NOTE | 2019-12-12 08:25 | Orthopedic Progress Note ---
Date of Service December 12, 2019 Assessment & Plan (1) S/P shoulder replacement: Postop day 2 status post left reverse total shoulder arthroplasty PT/OT protocols. Nonweightbearing left upper extremity. DVT prophylaxis with aspirin and SCDs. Continue current pain regimen. AM labs stable DC planning-patient planning for discharge to home later today Admission and Anticipated Discharge Date Admission Date: December 10, 2019 Subjective Postop day 2 Patient sitting at the bedside. Awake and alert. Pain is controlled. No complaints this morning. Denies shortness of breath, chest pain, lightheadedness. Review of Systems Review of Systems: All systems reviewed & are unremarkable except as noted in HPI & below Physical Exam Physical Exam: Sling in place. Dressing to left shoulder is c/d/i. Fingers are mobile. Good dust collector ore crushing strength. Distally n/v status and sensation are intact. Constitutional: well developed and well nourished; no acute distress Results & Data ([facility]) Vital Signs (Past 12 Hours) Vital Signs Temp Pulse Resp BP Pulse Ox 12/12/19 06:05 36.6 C 74 16 106/71 93 12/11/19 22:54 36.7 C 68 14 119/71 93 Laboratory Results H & H 11/27/19 12/11/19 12/12/19 Range/Units 14:01 05:51 05:52 Hgb 14.4 12.3 13.2 (12.0-16.0) g/dL Hct 43.0 36.7 L 40.6 (37-47) % Coagulation 11/27/19 Range/Units 14:01 INR 1.0 (0.9-1.1)
[2019-12-12] MEDS: INSULIN ASPART 100 UNITS/ML 3 ML PEN SC SCH (08:58)
[2019-12-12] MEDS: CALCIUM CARBONATE 1250MG TAB PO SCH (08:58)
[2019-12-12] MEDS: MULTIVITAMIN TAB PO SCH (08:58)
[2019-12-12] MEDS: DOCUSATE SODIUM 100 MG CAP PO SCH (08:58)
--- NOTE | 2019-12-12 10:28 | Hospitalist Progress Note ---
Date of Service December 12, 2019 Assessment & Plan (1) S/P shoulder replacement: 69-year-old female with PMH of prediabetes, HLD and OA who is POD#1 s/p L reverse TSA by Dr. Bhagat. Patient doing well Hb stable at 13.2 WBC is 14.16 likely reactive, resolving 12 this AM Primary ortho team for pain control, wound care, anticoagulation and activities (2) Prediabetes: A1c of 6.1 Diabetic diet, Provided basic DM education (3) HLD (hyperlipidemia): Fish oil supplementation held by primary service Patient can be discharged home To follow up with her PCP and ortho Admission and Anticipated Discharge Date Admission Date: December 10, 2019 Subjective Patient seen and examined Reports some soreness of left shoulder but stated it is well controlled with current regimen Physical Exam Constitutional: + well hydrated and + obese; no acute distress Eyes: PERRL, conjunctivae normal, anicteric sclerae Respiratory: normal respiratory effort, lungs clear to auscultation Cardiovascular: Rate/Rhythm: regular rate and regular rhythm Heart Sounds: normal S1 and normal S2 Gastrointestinal (Abdomen): normal bowel sounds, soft, nontender, no hepatosplenomegaly Musculoskeletal: LEft UE in sling Clean dressing over surgical site Neurologic: PERRL, EOMI, accommodation nl, no face palsy, no dysarthria Psychiatric: A+Ox3, euthymic affect Results & Data Results & Data ([facility]) Vital Signs (Past 12 Hours) Vital Signs Temp Pulse Resp BP Pulse Ox 12/12/19 06:05 36.6 C 74 16 106/71 93 12/11/19 22:54 36.7 C 68 14 119/71 93 Laboratory Results Laboratory Results - last 24 hr 12/11/19 12/11/19 12/11/19 12:20 17:13 20:35 WBC RBC Hgb Hct MCV MCH MCHC RDW Std Deviation RDW Coeff of Tanna Plt Count MPV Immature Gran % (Auto) Neut % (Auto) Lymph % (Auto) [place] % (Auto) Eos % (Auto) Baso % (Auto) Neut # (Auto) Lymph # (Auto) [place] # (Auto) Eos # (Auto) Baso # (Auto) Immature Gran # (Auto) Sodium Potassium Chloride Carbon Dioxide Anion Gap BUN Creatinine Est Cr Clr Drug Dosing Est GFR ( Amer) Est GFR (Non-Af Amer) BUN/Creatinine Ratio Glucose POC Glucose 106 H 118 H 106 H Calcium 12/12/19 12/12/19 12/12/19 05:52 05:52 08:14 WBC 12.64 H RBC 4.52 Hgb 13.2 Hct 40.6 MCV 89.8 MCH 29.2 MCHC 32.5 RDW Std Deviation 46.0 RDW Coeff of Tanna 13.9 Plt Count 183 MPV 10.1 Immature Gran % (Auto) 0.3 Neut % (Auto) 58.7 Lymph % (Auto) 31.6 [place] % (Auto) 7.8 Eos % (Auto) 1.3 Baso % (Auto) 0.3 Neut # (Auto) 7.41 H Lymph # (Auto) 3.99 H [place] # (Auto) 0.99 H Eos # (Auto) 0.17 Baso # (Auto) 0.04 Immature Gran # (Auto) 0.04 H Sodium 139 Potassium 3.9 Chloride 109 H Carbon Dioxide 23 Anion Gap 7.0 BUN 14 Creatinine 0.71 Est Cr Clr Drug Dosing 79.3 Est GFR ( Amer) 99.3 Est GFR (Non-Af Amer) 85.7 BUN/Creatinine Ratio 20.1 H Glucose 94 POC Glucose 115 H Calcium 8.7
--- NOTE | 2019-12-20 23:18 | Discharge Summary (DS) ---
HISTORY OF PRESENT ILLNESS: This is a 69-year-old female patient of Dr. Bhagat'dillon complaining of chronic left shoulder pain, longstanding, progressively getting worse. She reports no trauma. She has failed conservative treatment including aspirin and CBD oil. An MRI confirmed an insufficient rotator cuff, calcific tendinitis and biceps tendinopathy. The patient wished to proceed with a left shoulder reverse total shoulder arthroplasty, distal clavicle excision, excision of calcific deposit, biceps tenodesis and bone grafting of the glenoid cyst with humeral head autograft. PAST MEDICAL HISTORY: Heart murmur, peripheral neuropathy, osteoarthritis, sciatica and obesity. POSTOPERATIVE COURSE: The patient underwent a left shoulder reverse total shoulder arthroplasty, distal clavicle excision, excision of calcium deposit, biceps tenodesis and bone grafting of the glenoid cyst with humeral head autograft on 12/10/2019. Postoperatively, she was followed closely with medical consultation, DVT prophylaxis in the form of aspirin, limited physical therapy and pain control. The patient did well postoperatively and was discharged home on postoperative day #2. PHYSICAL EXAMINATION: On discharge, left shoulder incision was clean, dry and intact. [place] are intact. Skin edges were approximated well. There was no redness or drainage. Elbow, wrist and hand motion were intact. Sling was intact. Neurologically and neurovascularly she is intact in her left upper extremity. DIAGNOSES: Status post left reverse total shoulder arthroplasty, distal clavicle excision, excision of calcific deposit, biceps tenodesis and bone grafting of the glenoid cyst with humeral head autograft. She has a history of heart murmur, peripheral neuropathy, osteoarthritis, sciatica and obesity. PLAN: The patient was discharged home with limited home program only. She will continue her preadmission medications with the addition of aspirin and pain medications. She will follow up as an outpatient as scheduled. REBECCA
== END 2019-12-12 10:34 | disposition home or self-care (01) | DRG 483 ==
LOC: ASU 05:04 → 3E 11:33

== ENCOUNTER 2022-11-12 10:10 | Inpatient (IN) ==
--- NOTE | 2022-10-12 15:54 | PAT Medication Instructions ---
Medication Instructions Date of Service October 12, 2022 Home Medications black cohosh 1 cap PO DAILY PRN IRRITATED calcium carbonate 500 mg calcium (1,250 mg) tablet (Calcium 500) 500 mg PO HS cranberry 500 mg capsule 500 mg PO HS multivitamin with minerals (Hair,Skin and Nails tablet) 1 tab PO HS omega 3 350 mg-dha 235 mg-epa 90 mg-fish oil 597 mg capsule,delay rel ([place]-3) 1 cap PO HS diphenhydramine HCl 25 mg capsule (Benadryl) 25 mg PO HS ezetimibe 10 mg tablet 10 mg PO HS gabapentin 300 mg capsule 300 mg PO HS pfmjhgzq-lng-vzje-FA-Ca carb-vit K 18 mg iron-400 mcg-500 mg tablet 1 tab PO HS turmeric 400 mg capsule 400 mg PO HS STOP taking 2 weeks before surgery omega 3 350 mg-dha 235 mg-epa 90 mg-fish oil 597 mg capsule,delay rel ([place]-3) 1 cap PO HS black cohosh 1 cap PO DAILY PRN IRRITATED cranberry 500 mg capsule 500 mg PO HS turmeric 400 mg capsule 400 mg PO HS Take evening before surgery multivitamin with minerals (Hair,Skin and Nails tablet) 1 tab PO HS tioptcbv-fqq-okoz-FA-Ca carb-vit K 18 mg iron-400 mcg-500 mg tablet 1 tab PO HS calcium carbonate 500 mg calcium (1,250 mg) tablet (Calcium 500) 500 mg PO HS diphenhydramine HCl 25 mg capsule (Benadryl) 25 mg PO HS ezetimibe 10 mg tablet 10 mg PO HS gabapentin 300 mg capsule 300 mg PO HS Other Notes If you have any questions please call us at [phone] or [phone] or [phone] or [phone]
--- NOTE | 2022-10-22 11:03 | Anesthesiology Consultation ---
Date of Service October 22, 2022 Assessment & Plan (1) Encounter for pre-operative examination: Chart Review Chart Review: Acceptable Risk for Surgery and Patient seen in Pre Admission Testing Teaching & Discussion Pre-Anesthesia Teaching/Discussion Notes: Instructed NPO after midnight before surgery, except medications with 15 cc of water. Medication instructions provided according to the PAT guidelines. History Surgery Operation Date: 11/12/22 07:45 Proposed Procedures p L3-L5 Decompression and Fusion, Spinal Cord Monitoring - Krzysztof Christensen DO Height/Weight Height: 5 ft 2 in Weight: 93.44 kg Allergies Allergy/AdvReac Type Severity Reaction Status Date / Time [id number]-XSF-EpC Reductase AdvReac Intermediate mood swings Verified 10/22/22 11:18 Inhibitor Medications Home Medications Medication Instructions Recorded Confirmed Last Taken black cohosh 1 cap PO DAILY PRN IRRITATED 11/26/19 10/10/22 Unknown calcium carbonate 500 mg calcium 500 mg PO HS 11/26/19 10/10/22 Unknown (1,250 mg) tablet (Calcium 500) cranberry 500 mg capsule 500 mg PO HS 11/26/19 10/10/22 Unknown multivitamin with minerals 1 tab PO HS 11/26/19 10/10/22 11/29/19 22:00 (Hair,Skin and Nails tablet) omega 3 350 mg-dha 235 mg-epa 90 1 cap PO HS 11/26/19 10/10/22 Unknown mg-fish oil 597 mg capsule,delay rel ([place]-3) diphenhydramine HCl 25 mg capsule 25 mg PO HS 10/10/22 10/10/22 Unknown (Benadryl) ezetimibe 10 mg tablet 10 mg PO HS 10/10/22 10/10/22 Unknown gabapentin 300 mg capsule 300 mg PO HS 10/10/22 10/10/22 Unknown mtxmvdrn-iwj-hllo-FA-Ca carb-vit K 1 tab PO HS 10/10/22 10/10/22 Unknown 18 mg iron-400 mcg-500 mg tablet turmeric 400 mg capsule 400 mg PO HS 10/10/22 10/10/22 Unknown Past Medical History Medical History (Updated 10/22/22 @ 11:21 by Marily Arteaga PA-C) Aortic regurgitation mild Degenerative disc disease GERD (gastroesophageal reflux disease) rare, managed with supplements Hiatal hernia History of COVID-19 2020>RESOLVED History of prediabetes HLD (hyperlipidemia) Mitral regurgitation mild Patient denies h/o stroke, seizures, heart attack, heart failure, HTN, blood clots or blood transfusions. Exercise / Class Metabolic Activity III < 4 Walking/Shop/Light housework (denies chest discomfort or shortness of breath with usual activities, less than 8 steps in home) Past Family History Family History (Updated 10/22/22 @ 11:20 by Marily Arteaga PA-C) Grandmother (Maternal) Diabetes Daughter Clotting disorder several daughters and grandchildren with Factor V Leiden carrier mutation, patient denies any personal issues. Other Heart disease No family history of adverse response to anesthesia Past Surgical History Surgical History H/O shoulder surgery Left Reversed Total Shoulder Arthroplasty 12/10/2019 Grade 2 view, MAC 3, ETT 7. History of arthroscopy of right knee History of carpal tunnel release RT History of cataract surgery RT/LEFT History of colonoscopy History of D&C x3 History of repair of rotator cuff RT History of tonsillectomy History of tooth extraction Past Anesthesia History No Hx of Anesthesia Complications and No Family Hx of Anesthesia Complications History of PONV No Hx of PONV and No Hx of Motion Sickness Social History Smoking Status: Former smoker tobacco type: cigarettes Smoking cigarettes per day: 1971 Do You Dip or Chew Tobacco: No Hx Alcohol Use: No substance use type: does not use Review of Systems Patient denies chest pain, shortness of breath, dyspnea on exertion, snoring, witnessed apneas, fever, chills, cough, wheezing, or palpitations. Physical Exam Vital Signs Vitals BP 128/82 P 69 TEMP 97.7 SP02 98% on RA RESP 18 Physical Full cervical extension range of motion without pain TMD 3.5 finger breadths Mallampati Score 3 Dentition: intact, denies chipped or loose teeth, caps/crowns, implants or bridges Lungs: normal respiratory effort. Good air movement, clear throughout to auscultation, no adventitious breath sounds Cardiac: regular rate and rhythm, 2/6 diastolic murmur noted Carotid arteries: negative bruit bilat Lab Results Anesthesia Preop Results Results Anesthesia Widget: WBC 7.34 K/ul (4.8-10.8) 10/22/22 Hgb 14.2 g/dl (12.0-16.0) 10/22/22 Hct 42.5 % (37.0-47.0) 10/22/22 Plt 185 K/uL (130-400) 10/22/22 Na 140 mmol/L (136-145) 10/22/22 K 4.6 mmol/L (3.5-5.1) 10/22/22 Cl 106 mmol/L (98-107) 10/22/22 CO2 31 mmol/L (21-32) 10/22/22 BUN 18 mg/dl (6-23) 10/22/22 Creat 0.68 mg/dl (0.6-1.2) 10/22/22 Glucose Level 93 mg/dl (70-99(Fasting)) 10/22/22 PT 10.5 Seconds (9.0-12.0) 10/22/22 PTT 26.7 Seconds (21.0-31.0) 10/22/22 INR 1.0 (0.9-1.1) 10/22/22 Urine Color Yellow 10/22/22 Urine Appearance Clear (Clear) 10/22/22 Urine pH 6.5 (4.5-7.5) 10/22/22 Urine Specific Sandoval 1.016 (1.000-1.030) 10/22/22 Urine Protein Negative (Negative) 10/22/22 Urine Glucose (UA) Negative (Negative) 10/22/22 Urine Ketones Negative (Negative) 10/22/22 Urine Blood Negative (Negative) 10/22/22 Urine Nitrite Negative (Negative) 10/22/22 Urine Bilirubin Negative (Negative) 10/22/22 Urine Urobilinogen Negative (Negative) 10/22/22 Urine Leukocyte Esterase Negative (Negative) 10/22/22 Blood Type B Positive 10/22/22 Antibody Screen NEGATIVE 10/22/22 Testing Electrocardiogram Date: 10/22/22 Sinus rhythm with 1st degree AV block, rate 68 bpm Chest X-Ray Date: 10/22/22 No acute chest disease Echocardiogram Date: 01/28/19 EF 55% Mild mitral regurgitation Mild aortic regurgitation Stress Test Date: 08/24/22 Pharmacologic No evidence of ischemia or infarction Normal LVEF and wall motion Low risk nuclear scan Other Testing Carotid doppler 08/24/22 < 50% stenosis No hemodynamically significant stenosis COVID-19 Risk Screen Screening Information COVID-19 Screen Date: 10/22/22 Exposure 21 Days Family/Household +COVID Last 21 Days: No Exposure 10 Days Any COVID Exposure Last 10 Days: No Symptoms Last 10 Days Experienced COVID Sx Last 10 Days: No + COVID 0-90 Days COVID + in Last 0-90 Days: No
--- NOTE | 2022-11-12 09:11 | History & Physical Bridge Note ---
Date of Service November 12, 2022 History & Physical Bridge Note I have examined the patient, reviewed the History & Physical and in the interval since the performance of the History & Physical I have noted the following changes of clinical significance: no changes noted
--- NOTE | 2022-11-12 09:13 | History & Physical Report ---
Date of Service November 12, 2022 Assessment & Plan (1) Neurogenic claudication due to lumbar spinal stenosis: Plan: L2-S1 decompression and fusion History of Present Illness Chief Complaint: Back and bilateral leg pain Primary Care Provider: Lyudmila Thibodeaux DO This is a 72-year-old female presents with chronic persistent back and bilateral leg pain after failing extensive course of nonoperative care is here for surgical invention. Allergies Allergy/AdvReac Type Severity Reaction Status Date / Time Uamcoel-IDH-UaM Reductase AdvReac Intermediate mood swings Verified 10/22/22 11:18 Inhibitor Home Medications Medication Instructions Recorded Confirmed Type black cohosh 1 cap PO DAILY PRN IRRITATED 11/26/19 10/10/22 History calcium carbonate 500 mg calcium 500 mg PO HS 11/26/19 10/10/22 History (1,250 mg) tablet (Calcium 500) cranberry 500 mg capsule 500 mg PO HS 11/26/19 10/10/22 History multivitamin with minerals 1 tab PO HS 11/26/19 10/10/22 History (Hair,Skin and Nails tablet) omega 3 350 mg-dha 235 mg-epa 90 1 cap PO HS 11/26/19 10/10/22 History mg-fish oil 597 mg capsule,delay rel ([place]-3) diphenhydramine HCl 25 mg capsule 25 mg PO HS 10/10/22 10/10/22 History (Benadryl) ezetimibe 10 mg tablet 10 mg PO HS 10/10/22 10/10/22 History gabapentin 300 mg capsule 300 mg PO HS 10/10/22 10/10/22 History ymdvnifq-bxr-tyai-FA-Ca carb-vit K 1 tab PO HS 10/10/22 10/10/22 History 18 mg iron-400 mcg-500 mg tablet turmeric 400 mg capsule 400 mg PO HS 10/10/22 10/10/22 History Past Med/Surg History Medical History (Updated 11/12/22 @ 09:13 by Krzysztof Christensen DO) Aortic regurgitation mild Degenerative disc disease GERD (gastroesophageal reflux disease) rare, managed with supplements Hiatal hernia History of COVID-19 2020>RESOLVED History of prediabetes HLD (hyperlipidemia) Mitral regurgitation mild Surgical History H/O shoulder surgery Left Reversed Total Shoulder Arthroplasty 12/10/2019 Grade 2 view, MAC 3, ETT 7. History of arthroscopy of right knee History of carpal tunnel release RT History of cataract surgery RT/LEFT History of colonoscopy History of D&C x3 History of repair of rotator cuff RT History of tonsillectomy History of tooth extraction Family History (Updated 10/22/22 @ 11:20 by Marily Arteaga PA-C) Grandmother (Maternal) Diabetes Daughter Clotting disorder several daughters and grandchildren with Factor V Leiden carrier mutation, patient denies any personal issues. Other Heart disease No family history of adverse response to anesthesia Social History Smoking Status: Former smoker Cigarettes Per Day: 1971; Second Hand Exposure: No; Do You Dip or Chew Tobacco: No; Hx Alcohol Use: No Preferred Language: Trinidadian Communication Ability: Effective Choir Accompanist Required: No Beliefs That Will Affect Care: Jain Jain Beliefs: HOLINESS marital status: Current Living Situation: Spouse Feels Safe at Home: Yes Safety Concerns: Feels Safe At This Time Assistive Devices: Glasses Physical Exam Physical Exam: Patient is alert and oriented Heart regular rhythm Lungs clear
[~2022-11-12 10:10] MED LIST: ACETAMINOPHEN 500 MG TAB PO SCH; CeleBREX 200 MG CAP PO SCH; GABAPENTIN 300 MG CAP PO SCH; LR 15ML/HR IV SCH; ceFAZolin 2000MG 2,000 MG/15 ML SYR IV SCH
[2022-11-12] MEDS ORDERED: DEXAMETHASONE SOD INJ 4 MG/ML VIAL ONE (10:26)
[2022-11-12] MEDS ORDERED: NEOSTIGMINE METHYLSULFATE 1 MG/ML 10ML VIAL ONE (10:26)
[2022-11-12] MEDS ORDERED: ROCURONIUM BROMIDE 10 MG/ML 5 ML VIAL IV ONE (10:26)
[2022-11-12] MEDS ORDERED: MIDAZOLAM HCL 1 MG/ML 2ML VIAL ONE (10:26)
[2022-11-12] MEDS ORDERED: LIDOCAINE 2% 2 ML VIAL/AMP(20MG/ML) INFIL ONE (10:26)
[2022-11-12] MEDS ORDERED: PROPOFOL IV EMULSION 10 MG/ML 20 ML VIAL IV ONE (10:26)
[2022-11-12] MEDS ORDERED: GLYCOPYRROLATE 0.2 MG/ML VIAL ONE (10:26)
[2022-11-12] MEDS ORDERED: ONDANSETRON INJ 2 MG/ML 2 ML VIAL ONE (10:26)
[2022-11-12] MEDS ORDERED: fentaNYL citrate PF 100 MCG/2 ML VIAL ONE (10:27)
[2022-11-12] MEDS ORDERED: NALOXONE HCL 0.4 MG/1 ML VIAL/CARP IV PRN ×2 (11:26→17:18)
[2022-11-12] MEDS ORDERED: PROMETHAZINE HCL 12.5 MG in SODIUM CHLORIDE 0.9% 50 ML IV PRN ×2 (11:26→17:18)
[2022-11-12] MEDS ORDERED: LABETALOL HCL IV 5 MG/ML 20ML IV PRN (11:26)
[2022-11-12] MEDS ORDERED: FLUMAZENIL 0.1 MG/1 ML 10 ML VIAL IV PRN (11:26)
[2022-11-12] MEDS ORDERED: ONDANSETRON INJ 2 MG/ML 2 ML VIAL IV PRN ×2 (11:26→17:18)
--- NOTE | 2022-11-12 11:55 | History & Physical Bridge Note ---
Date of Service November 12, 2022 History & Physical Bridge Note I have examined the patient, reviewed the History & Physical and in the interval since the performance of the History & Physical I have noted the following changes of clinical significance: no changes noted L3 L5 decompression and fusion
[2022-11-12] MEDS ORDERED: ceFAZolin 330 MG/ML 1 GM VIAL ONE (12:15)
[2022-11-12] MEDS ORDERED: BUPIVACAINE/EPINEPHRINE 0.25% 1:200,000 30 ML VIAL ONE (12:15)
[2022-11-12] MEDS ORDERED: ePHEDrine sulfate 50 MG/ML SYR ONE (13:42)
[2022-11-12] MEDS ORDERED: FLOSEAL HEMOSTATIC MATRIX 10ML TOP ONE (14:57)
--- NOTE | 2022-11-12 15:04 | Fluoroscopy Report ---
FL lumbar spine 2-3V CLINICAL HISTORY: L3-L5 DECOMP/FUSION COMPARISON STUDY: None. FLUOROSCOPY TIME: 28 seconds. Ka, r: 31.53 mGy FLUOROSCOPIC IMAGES: 2 FINDINGS: Fluoroscopy was provided during L3-L4 discectomy with interbody spacer placement. Posterior decompression is noted. There are bilateral pedicle screws at the L3, L4 and L5 levels with intercon necting rods. IMPRESSION: Fluoroscopy provided during L3-L4 discectomy, and L3-L5 decompression and pedicle screw fusion. ACT 112: Negative or not required by law. Electronically signed by: Han Sevilla M.D. 11/12/2022 3:03 PM
--- NOTE | 2022-11-12 15:16 | Operative Report ---
Post Operative Report Pre & Post Diagnosis Operation Date: 11/12/22 11:45 Pre-Op Diagnosis: 1. Lumbar spinal stenosis with neurogenic claudication. #2 spondylolisthesis L3-L4 L4-L5. #3 obesity Post-Op Diagnosis: Same I identified the patient and participated in the time-out.: Yes Procedure Operation Date: 11/12/22 11:45 Actual Procedures 1. Lumbar decompression bilateral medial facetectomies and foraminotomies L2- L3, L3-L4 L4-5. #2 posterior spinal fusion L3-L4 L4-L5 #3 placed posterior instrumentation L3-L5. #4 interbody fusion L3-L4. #5 placement of Spira 10 x 26 mm at L3-L4. #6 placement locally harvested morselized autograft in the posterior gutters. #7 placement of I factor combined with V toss in the interbody space and posterior lateral gutters. Surgeon Krzysztof Christensen, Form Builder Helper none Estimated Blood Loss 400 Findings See Below The patient is 5 foot 2 weighing over 93 kg and BMI in excess of 37. The patient's body habitus did contribute to significant technical difficulty required deepest retractors and longer instruments in order to perform her procedure. This at least 50% increased operative time. Specimens none Indications This is a 72-year-old female who presents above-mentioned diagnosis of failed course of nonoperative care she is here for surgical intervention. Description of Procedure Patient was met with identified informed consent obtained. Patient was then taken to the operative suite underwent patient placed in a prone position on the Reji table on top of the Porter frame. All bony promises well-padded eyes inspected to ensure no external pressure placed upon them. This point lumbar spine was prepped and draped in a sterile fashion. Sharp dissection with the assistance of Bovie cautery to form down to and exposing the lamina and transverse processes of L3-L4-L5 bilaterally. From caudal to cephalad fashion complete laminectomy of L4 L3 impression laminectomy L2 was performed including bilateral medial facetectomies and foraminotomies addressing severe spinal stenosis. Marked dural thickening ectasia was noted I did prophylactically cover this level with an DuraGen patch. Pedicle screws were then placed in L3-L4-L5 bilaterally with assistance of fluoroscopy and properly sized rosanna placed. By way the transforaminal approach on the right a complete discectomy of L3-L4 was performed endplates corrected to subcortical bleeding bone and a 10 x 26 mm Spira cage with I factor tapped in position. The rods were then locked in final position bilaterally. The transverse processes of L3 L4-5 burred to subcortically bone. I factor bone of the test and locally harvested morselized autograft was placed in the posterior gutters. 15 round BRIT drain inserted. The incision was then closed with 1 Vicryl the fascia 2-0 Vicryl subcutaneously and 4 Monocryl for final skin closure. Steri-Strips sterile dressing placed. Patient awakened taken to PACU stable condition. Please note spinal cord monitoring was utilized at the procedure no changes noted. I attest to the content of the Intraoperative Record and any orders documented therein. Any exceptions are noted below.
[2022-11-12] MEDS: fentaNYL citrate PF 100 MCG/2 ML VIAL IV PRN ×4 (15:30→15:45)
[2022-11-12] MEDS: HYDROmorphone INJ 1 MG/ML SYRINGE IV PRN ×6 (15:50→16:35)
--- NOTE | 2022-11-12 16:37 | Anesthesiology Progress Note ---
Date of Service November 12, 2022 Anesthesia Post Procedure Vital Signs Vital Signs: Temp Pulse Resp BP Pulse Ox O2 Del Method O2 Flow Rate 11/12/22 16:20 64 18 114/61 97 Room Air 11/12/22 16:10 58 L 20 104/68 98 Room Air 11/12/22 16:00 60 15 118/69 98 Oxymask 2 11/12/22 15:50 62 12 111/67 100 Oxymask 4 11/12/22 15:40 69 15 112/58 L 100 Oxymask 4 11/12/22 15:30 74 15 143/69 H 100 Oxymask 6 11/12/22 15:24 36.8 C 76 16 135/71 99 Oxymask 6 11/12/22 10:46 36.5 C 76 18 138/58 L 98 Room Air Pain Intensity Back: Pain Intensity: 3 Transfer of Care Handoff Completed per policy Notes Mental Status: alert / awake / arousable Patient Amnestic to Procedure: Yes Nausea / Vomiting: adequately controlled Pain: adequately controlled Airway Patency, RR, SpO2: stable & adequate BP & HR: stable & adequate Hydration State: stable & adequate Anesthetic Complications: no major complications apparent
[2022-11-12] MEDS ORDERED: hydrOXYzine HCl 25 MG TAB PO PRN (17:18)
[2022-11-12] MEDS ORDERED: FAMOTIDINE 20 MG TAB PO PRN (17:18)
[2022-11-12] MEDS ORDERED: LORazepam 2 MG/1 ML VIAL IV PRN (17:18)
[2022-11-12] MEDS ORDERED: bisacodyL 10 MG SUPP PR PRN (17:18)
[2022-11-12] MEDS ORDERED: DO NOT ADMINISTER FLU VACCINE PRN (17:18)
[2022-11-12] MEDS ORDERED: METOCLOPRAMIDE HCL INJ 5 MG/ML 2 ML VIAL IV PRN (17:18)
[2022-11-12] MEDS ORDERED: ACETAMINOPHEN 1,000 MG/100 ML VIAL IV PRN (17:18)
[2022-11-12] MEDS ORDERED: diphenhydrAMINE Capsule 25 MG CAP PO PRN (17:18)
[2022-11-12] MEDS ORDERED: ACETAMINOPHEN 500 MG TAB PO PRN (17:18)
[2022-11-12] MEDS ORDERED: ALUMINUM/MAGNESIUM SUSP 30 ML UDC PO PRN (17:18)
[2022-11-12] MEDS ORDERED: HYDROmorphone INJ 1 MG/ML SYRINGE IV PRN (17:18)
[2022-11-12] MEDS ORDERED: DO NOT ADMINISTER PNEUMOCOCCAL VACCINE PRN (17:18)
[2022-11-12] MEDS ORDERED: LACTATED RINGER'S 1,000 ML IV SCH (17:18)
[2022-11-12] MEDS ORDERED: MAGNESIUM HYDROXIDE SUSP 30 ML UDC PO PRN (17:18)
[2022-11-12] MEDS ORDERED: SOD PHOSPHATE/SOD BIPHOSPHATE ENEMA 132 ML BTL PR PRN (17:18)
[2022-11-12] MEDS ORDERED: oxyCODONE HCL IR 5 MG TAB (IMMEDIATE RELEASE) PO PRN (17:18)
[2022-11-12] MEDS ORDERED: ONDANSETRON 4 MG OD TAB PO PRN (17:18)
--- NOTE | 2022-11-12 18:11 | Hospitalist Consultation ---
Date of Consultation November 12, 2022 Assessment & Plan (1) Neurogenic claudication due to lumbar spinal stenosis: POD#0 L2-S1 decompression and fusion by Dr. Christensen Activity and wound care orders as per ortho Pain control with bowel regimen PT/OT Monitor H/H for acute blood loss anemia and transfuse blood products PRN EBL 200 cc (2) Prediabetes: Hgb A1c 6.0 10/2022 Monitor glucose on a.m. labs, provide NovoLog if needed (3) HLD (hyperlipidemia): Continue Zetia DVT PROPHYLAXIS TEDs/SCDs as per spine Ortho Patient seen in collaboration with Dr. Lubin. Supervising Physician Co-Signing Physician Notes I have seen and examined the patient and have discussed the case with the provider above. I agree with the assessment and plan as stated. 72 yo F with pain controlled post operatively. Denies any SOB or chest pain or other symptoms at this time. Exam reveals hemodynamically stable, morbidly obese female in no acute distress. Lower extremities are NVI bilaterally. BRIT drain in place. Cardio exam with 3/6 niko across precordium and lungs are clears to auscultation throughout. Chart and medications were reviewed, agree with plan as outlined jacquie joseph. Thank you for this consultation. DO Tristian History of Present Illness Reason for Consultation: Postop medical management Requesting Physician: Dr. Christensen Attending Physician: Krzysztof Christensen DO History of Present Illness 72-year-old female with PMH dyslipidemia, prediabetes, osteoarthritis, and other problems listed below who is s/p L2-S1 decompression and fusion today by Dr. Christensen. History is obtained from the patient and review of outpatient PCP records. Postoperatively, the patient is doing well. She reports her pain is well controlled. Denies numbness, tingling, weakness to lower extremities. No chest pain or shortness of breath. Denies abdominal pain and nausea. Hernandez catheter is in place. Allergies Allergy/AdvReac Type Severity Reaction Status Date / Time Syntirn-TTR-ApO Reductase AdvReac Intermediate mood swings Verified 11/12/22 10:37 Inhibitor Home Medications Medication Instructions Recorded Confirmed Type black cohosh 1 cap PO DAILY PRN IRRITATED 11/26/19 11/12/22 History calcium carbonate 500 mg calcium 500 mg PO HS 11/26/19 11/12/22 History (1,250 mg) tablet (Calcium 500) cranberry 500 mg capsule 500 mg PO HS 11/26/19 11/12/22 History multivitamin with minerals 1 tab PO HS 11/26/19 11/12/22 History (Hair,Skin and Nails tablet) omega 3 350 mg-dha 235 mg-epa 90 1 cap PO HS 11/26/19 11/12/22 History mg-fish oil 597 mg capsule,delay rel ([place]-3) diphenhydramine HCl 25 mg capsule 25 mg PO HS 10/10/22 11/12/22 History (Benadryl) ezetimibe 10 mg tablet (Zetia) 10 mg PO HS 10/10/22 11/12/22 History gabapentin 300 mg capsule 300 mg PO HS 10/10/22 11/12/22 History gvnstebt-knm-nkfe-FA-Ca carb-vit K 1 tab PO HS 10/10/22 11/12/22 History 18 mg iron-400 mcg-500 mg tablet turmeric 400 mg capsule 400 mg PO HS 10/10/22 11/12/22 History Patient History Medical History Aortic regurgitation mild Degenerative disc disease GERD (gastroesophageal reflux disease) rare, managed with supplements Hiatal hernia History of COVID-19 2020>RESOLVED History of prediabetes HLD (hyperlipidemia) Mitral regurgitation mild Surgical History H/O shoulder surgery Left Reversed Total Shoulder Arthroplasty 12/10/2019 Grade 2 view, MAC 3, ETT 7. History of arthroscopy of right knee History of carpal tunnel release RT History of cataract surgery RT/LEFT History of colonoscopy History of D&C x3 History of repair of rotator cuff RT History of tonsillectomy History of tooth extraction S/P shoulder replacement Family History Grandmother (Maternal) Diabetes Daughter Clotting disorder several daughters and grandchildren with Factor V Leiden carrier mutation, patient denies any personal issues. Other Heart disease No family history of adverse response to anesthesia Social History Smoking Status: Former smoker Cigarettes Per Day: 1971; Second Hand Exposure: No; Do You Dip or Chew Tobacco: No; Hx Alcohol Use: No Preferred Language: Welsh Communication Ability: Effective Marble Coper Required: No Beliefs That Will Affect Care: Mu-Ism Mu-Ism Beliefs: JEW marital status: Current Living Situation: Spouse Feels Safe at Home: Yes Safety Concerns: Feels Safe At This Time Assistive Devices: Glasses Review of Systems Review of Systems: ROS per HPI, all other systems reviewed and negative Physical Exam Constitutional: WD/WN, vitals as above Eyes: PERRL, conjunctivae normal, anicteric sclerae ENMT: external ear and nose normal, oropharynx normal Respiratory: normal respiratory effort, lungs clear to auscultation Cardiovascular: Rate/Rhythm: regular rate and regular rhythm Vessels: normal peripheral pulses Extremities: + edema (Trace ankle edema noted) Gastrointestinal (Abdomen): normal bowel sounds, soft, nontender, no hepatosplenomegaly Musculoskeletal: S/p back surgery, pedal pushes and pull strong bilaterally, drain in place draining bloody drainage Skin: no rashes, warm and dry Neurologic: PERRL, EOMI, accommodation nl, no face palsy, no dysarthria Psychiatric: A+Ox3, euthymic affect Results & Data Results & Data Vital Signs (Past 12 Hours) Vital Signs Temp Pulse Pulse Resp BP Pulse Ox O2 Del Method 11/12/22 17:59 71 18 108/67 97 Room Air 11/12/22 17:22 36.3 C L 55 L 18 119/66 96 Room Air 11/12/22 16:40 69 20 100/58 L 97 Room Air 11/12/22 16:50 52 L 17 101/53 L 97 Room Air 11/12/22 16:30 36.1 C L 54 L 19 107/59 L 98 Room Air 11/12/22 16:20 64 18 114/61 97 Room Air 11/12/22 16:10 58 L 20 104/68 98 Room Air 11/12/22 16:00 60 15 118/69 98 Oxymask 11/12/22 15:50 62 12 111/67 100 Oxymask 11/12/22 15:40 69 15 112/58 L 100 Oxymask 11/12/22 15:30 74 15 143/69 H 100 Oxymask 11/12/22 15:24 36.8 C 76 16 135/71 99 Oxymask 11/12/22 10:46 36.5 C 76 18 138/58 L 98 Room Air O2 Flow Rate 11/12/22 17:59 11/12/22 17:22 11/12/22 16:40 11/12/22 16:50 11/12/22 16:30 11/12/22 16:20 11/12/22 16:10 11/12/22 16:00 2 11/12/22 15:50 4 11/12/22 15:40 4 11/12/22 15:30 6 11/12/22 15:24 6 11/12/22 10:46
[2022-11-12] MEDS: DOCUSATE SODIUM/SENNA 50/8.6MG TAB PO SCH (20:53)
[2022-11-12] MEDS: GABAPENTIN 300 MG CAP PO SCH (20:54)
[2022-11-12] MEDS: CALCIUM CARBONATE 1250MG TAB PO SCH (20:54)
[2022-11-12] MEDS: EZETIMIBE 10 MG TABLET PO SCH (20:54)
[2022-11-12] MEDS: HYDROmorphone INJ 0.5 MG/0.5 ML SYR IV PRN (20:55)
[2022-11-12] MEDS ORDERED: diphenhydrAMINE Capsule 25 MG CAP PO SCH (21:00)
[2022-11-12] MEDS: ceFAZolin 2000MG 2,000 MG/15 ML SYR IV SCH (23:12)
[2022-11-13] MEDS: HYDROmorphone INJ 0.5 MG/0.5 ML SYR IV PRN ×4 (02:39→21:39)
[2022-11-13] MEDS: POLYETHYLENE (MIRALAX) 17 GM PACK PO SCH ×3 (05:59→18:07)
[2022-11-13] MEDS: ceFAZolin 2000MG 2,000 MG/15 ML SYR IV SCH (06:00)
[2022-11-13 07:26] LABS: Basophils # (auto) 0.01 K/uL (0-0.2); Basophils % (auto) 0.1 %; Hemoglobin 11.8 g/dl (12.0-16.0); Immature Granulocytes # (auto) 0.11 K/uL (0.01-0.20); Immature Granulocytes % (auto) 0.7 %; Lymphocytes % (auto) 12.5 %; Mean Corpuscular Hemoglobin 29.6 pg (25.0-34.0); Mean Corpuscular Hgb Conc 33.7 g/dL (32.0-36.0); Mean Corpuscular Volume 87.9 fL (80.0-100.0); Mean Platelet Volume 9.8 fL (9.4-12.4); Monocytes # (auto) 0.77 K/uL (0.11-0.59); Monocytes % (auto) 5.1 %; Neutrophils # (auto) 12.43 K/uL (1.40-6.50); Neutrophils % (auto) 81.6 %; Platelet Count 186 K/uL (130-400); RDW Coefficient of Variation 12.7 % (11.5-14.5); RDW Standard Deviation 40.9 fL (36.4-46.3); Red Blood Count 3.98 M/uL (4.20-5.40); White Blood Count 15.22 K/ul (4.8-10.8)
[2022-11-13 07:43] LABS: BUN Creatinine Ratio 20.9 (10-20); Calcium 8.5 mg/dl (8.6-10.3); Creatinine Clr Calc Pharmacy 78.3 ml/min; Est GFR (African American) 100.4 ml/min; Est GFR (Non-African American) 86.6 ml/min; Potassium 4.3 mmol/L (3.5-5.1)
[2022-11-13] MEDS: dexAMETHasone 6 MG in SYRINGE 0 ML IV SCH (09:06)
--- NOTE | 2022-11-13 09:43 | Orthopedic Progress Note ---
Date of Service November 13, 2022 Assessment & Plan (1) Neurogenic claudication due to lumbar spinal stenosis: Plan: Sharona is postoperative day 1 status post lumbar decompression and fusion L3-5. We will start physical therapy today. DVT prophylaxis is in the form teds and SCDs. Continue with pain control. Maintain BRIT drain. Anticipate discharge home later on this week. Admission and Anticipated Discharge Date Admission Date: November 12, 2022 Subjective Sharona is postoperative day 1 status post L3-5 decompression and fusion. She has "a weird" sensation in her left thigh. No true pain. Otherwise had an uneventful evening. BRIT drain output last shift was 100 cc. H&H this morning are 11.8 and 35.0 respectively. Review of Systems Review of Systems: All systems reviewed & are unremarkable except as noted in HPI & below Physical Exam Physical Exam: As she is laying in bed in no acute distress Alert and oriented x3 Lumbar dressing is clean dry intact with functioning BRIT drain Calf soft nontender bilateral SARAH hose intact bilateral lower extremity Strength intact bilateral lower extremities Results & Data Vital Signs (Past 12 Hours) Vital Signs Temp Pulse Resp BP Pulse Ox O2 Del Method 11/13/22 08:43 36.5 C 69 18 111/71 93 Room Air 11/13/22 02:28 36.5 C 63 18 103/59 L 95 Room Air 11/12/22 23:35 36.4 C L 70 18 106/65 94 Room Air
--- NOTE | 2022-11-13 12:49 | Hospitalist Progress Note ---
Date of Service November 13, 2022 Assessment & Plan (1) Neurogenic claudication due to lumbar spinal stenosis: (2) Acute blood loss anemia: Plan: POD#1 L2-S1 decompression and fusion by Dr. Christensen Activity and wound care orders as per ortho Pain control with bowel regimen PT/OT Hb dropped down from 14.2 to 11.8. Monitor for now. EBL 200 cc (3) Prediabetes: Plan: Hgb A1c 6.0 10/2022 monitor blood glucose. (4) HLD (hyperlipidemia): Plan: Continue Zetia DVT PROPHYLAXIS TEDs/SCDs as per spine Ortho Admission and Anticipated Discharge Date Admission Date: November 12, 2022 Subjective Patient seen and examined at bedside. She is comfortable lying in the bed; not in any distress. Reports that the pain is well controlled. Review of Systems Review of Systems: All systems reviewed & are unremarkable except as noted in Subjective Physical Exam Physical Exam: Constitutional: WD/WN, vitals as above, NAD, sitting up in bed, pleasant, conversing easily Respiratory: normal respiratory effort, lungs clear to auscultation, no wheeze, rales, rhonchi. Normal insp/exp effort, no accessory muscle use Cardiovascular: RRR, no murmur, no edema Vessels: no JVD or carotid bruit Chest: normal inspection of chest Abdomen: normal bowel sounds, soft, nontender, no hepatosplenomegaly Musculoskeletal: no cyanosis or clubbing, extremities motor strength 5/5. BRIT drain in place with serosanguineous output. Skin: no rashes, warm and dry normal turgor Neurologic: PERRL, EOMI, accommodation nl, no face palsy, no dysarthria CN's II- XI intact bilaterally and moves all extremities Psychiatric: A+Ox3, euthymic affect Results & Data Results & Data Vital Signs (Past 12 Hours) Vital Signs Temp Pulse Resp BP Pulse Ox O2 Del Method 11/13/22 11:50 36.5 C 68 16 106/68 93 Room Air 11/13/22 08:43 36.5 C 69 18 111/71 93 Room Air 11/13/22 02:28 36.5 C 63 18 103/59 L 95 Room Air Laboratory Results Laboratory Results WBC 15.22 K/ul (4.8-10.8) H 11/13/22 06:59 RBC 3.98 M/uL (4.20-5.40) L 11/13/22 06:59 Hgb 11.8 g/dl (12.0-16.0) L 11/13/22 06:59 Hct 35.0 % (37.0-47.0) L 11/13/22 06:59 MCV 87.9 fL (80.0-100.0) 11/13/22 06:59 MCH 29.6 pg (25.0-34.0) 11/13/22 06:59 MCHC 33.7 g/dL (32.0-36.0) 11/13/22 06:59 RDW Std Deviation 40.9 fL (36.4-46.3) 11/13/22 06:59 RDW Coeff of Tanna 12.7 % (11.5-14.5) 11/13/22 06:59 Plt Count 186 K/uL (130-400) 11/13/22 06:59 MPV 9.8 fL (9.4-12.4) 11/13/22 06:59 Immature Gran % (Auto) 0.7 % 11/13/22 06:59 Neut % (Auto) 81.6 % 11/13/22 06:59 Lymph % (Auto) 12.5 % 11/13/22 06:59 Johnson % (Auto) 5.1 % 11/13/22 06:59 Eos % (Auto) 0.0 % 11/13/22 06:59 Baso % (Auto) 0.1 % 11/13/22 06:59 Neut # (Auto) 12.43 K/uL (1.40-6.50) H 11/13/22 06:59 Lymph # (Auto) 1.90 K/uL (1.2-3.4) 11/13/22 06:59 Johnson # (Auto) 0.77 K/uL (0.11-0.59) H 11/13/22 06:59 Eos # (Auto) 0.00 K/uL (0-0.50) 11/13/22 06:59 Baso # (Auto) 0.01 K/uL (0-0.2) 11/13/22 06:59 Immature Gran # (Auto) 0.11 K/uL (0.01-0.20) 11/13/22 06:59 Sodium 135 mmol/L (136-145) L 11/13/22 06:59 Potassium 4.3 mmol/L (3.5-5.1) 11/13/22 06:59 Chloride 104 mmol/L (98-107) 11/13/22 06:59 Carbon Dioxide 25 mmol/L (21-32) 11/13/22 06:59 Anion Gap 6 (3-11) 11/13/22 06:59 BUN 14 mg/dl (6-23) 11/13/22 06:59 Creatinine 0.67 mg/dl (0.6-1.2) 11/13/22 06:59 Est Cr Clr Drug Dosing 78.3 ml/min 11/13/22 06:59 Est GFR ( Amer) 100.4 ml/min 11/13/22 06:59 Est GFR (Non-Af Amer) 86.6 ml/min 11/13/22 06:59 BUN/Creatinine Ratio 20.9 (10-20) H 11/13/22 06:59 Glucose 126 mg/dl (70-99(Fasting)) H 11/13/22 06:59 POC Glucose 103 mg/dl (70-99) H 11/12/22 10:37 Calcium 8.5 mg/dl (8.6-10.3) L 11/13/22 06:59 SARS-CoV-2, RNA, NAAT NEGATIVE (NEGATIVE) 11/12/22 Unknown Blood Type B Positive 11/12/22 10:22 Antibody Screen NEGATIVE 11/12/22 10:22 Crossmatch See Detail 11/12/22 10:22 Impressions Lumbar Spine X-Ray 11/12/22 00:00 FL lumbar spine 2-3V CLINICAL HISTORY: L3-L5 DECOMP/FUSION COMPARISON STUDY: None. FLUOROSCOPY TIME: 28 seconds. Ka, r: 31.53 mGy FLUOROSCOPIC IMAGES: 2 FINDINGS: Fluoroscopy was provided during L3-L4 discectomy with interbody spacer placement. Posterior decompression is noted. There are bilateral pedicle screws at the L3, L4 and L5 levels with interconnecting rods. IMPRESSION: Fluoroscopy provided during L3-L4 discectomy, and L3-L5 decompression and pedicle screw fusion. ACT 112: Negative or not required by law. Electronically signed by: Han Sevilla M.D. 11/12/2022 3:03 PM
[2022-11-13] MEDS: GABAPENTIN 300 MG CAP PO SCH (20:36)
[2022-11-13] MEDS: EZETIMIBE 10 MG TABLET PO SCH (20:37)
[2022-11-13] MEDS: DOCUSATE SODIUM/SENNA 50/8.6MG TAB PO SCH (20:37)
[2022-11-13] MEDS: CALCIUM CARBONATE 1250MG TAB PO SCH (20:38)
[2022-11-13] MEDS: LORazepam 0.5 MG TAB PO PRN (21:39)
[2022-11-14] MEDS: POLYETHYLENE (MIRALAX) 17 GM PACK PO SCH ×5 (01:04→22:28)
[2022-11-14] MEDS: dexAMETHasone 6 MG in SYRINGE 0 ML IV SCH (07:51)
[2022-11-14] MEDS: traMADol HCL 50 MG TABLET PO PRN ×3 (07:51→21:39)
--- NOTE | 2022-11-14 09:57 | Orthopedic Progress Note ---
Date of Service November 14, 2022 Assessment & Plan (1) Neurogenic claudication due to lumbar spinal stenosis: Plan: At this time we will change her dressing discontinue drain and initiate a course of physical therapy. If she continues to progress appropriately next few days we will discharge home. Admission and Anticipated Discharge Date Admission Date: November 12, 2022 Subjective Patient's back pain is controlled leg pain improved. Denies any nausea or vomiting. Physical Exam Physical Exam: Patient is seen but bed. She is comfortable. Is good strength testing. Results & Data Vital Signs (Past 12 Hours) Vital Signs Temp Pulse Resp BP Pulse Ox O2 Del Method 11/14/22 08:10 Room Air 11/14/22 07:03 36.3 C L 65 16 115/70 93 Room Air
--- NOTE | 2022-11-14 10:57 | Hospitalist Progress Note ---
Date of Service November 14, 2022 Assessment & Plan (1) Neurogenic claudication due to lumbar spinal stenosis: (2) Acute blood loss anemia: Plan: POD#2 L2-S1 decompression and fusion by Dr. Christensen Activity and wound care orders as per ortho Pain control with bowel regimen PT/OT Hernandez likely to be removed after ambulation. Hb dropped down from 14.2 to 11.8. Monitor for now. EBL 200 cc (3) Prediabetes: Plan: Hgb A1c 6.0 10/2022 monitor blood glucose. (4) HLD (hyperlipidemia): Plan: Continue Zetia DVT PROPHYLAXIS TEDs/SCDs as per spine Ortho Admission and Anticipated Discharge Date Admission Date: November 12, 2022 Subjective Patient comfortably sitting up on the bed; not in any distress. Denies abdominal pain; no bowel movement yet. Review of Systems Review of Systems: All systems reviewed & are unremarkable except as noted in Subjective Physical Exam Physical Exam: Constitutional: WD/WN, vitals as above, NAD, sitting up in bed, pleasant, conversing easily Respiratory: normal respiratory effort, lungs clear to auscultation, no wheeze, rales, rhonchi. Normal insp/exp effort, no accessory muscle use Cardiovascular: RRR, no murmur, no edema Vessels: no JVD or carotid bruit Chest: normal inspection of chest Abdomen: normal bowel sounds, soft, nontender, no hepatosplenomegaly Musculoskeletal: no cyanosis or clubbing, extremities motor strength 5/5. BRIT drain in place with serosanguineous output. Skin: no rashes, warm and dry normal turgor Neurologic: PERRL, EOMI, accommodation nl, no face palsy, no dysarthria CN's II- XI intact bilaterally and moves all extremities Psychiatric: A+Ox3, euthymic affect Results & Data Results & Data Vital Signs (Past 12 Hours) Vital Signs Temp Pulse Resp BP Pulse Ox O2 Del Method 11/14/22 08:10 Room Air 11/14/22 07:03 36.3 C L 65 16 115/70 93 Room Air Laboratory Results Laboratory Results WBC 15.22 K/ul (4.8-10.8) H 11/13/22 06:59 RBC 3.98 M/uL (4.20-5.40) L 11/13/22 06:59 Hgb 11.8 g/dl (12.0-16.0) L 11/13/22 06:59 Hct 35.0 % (37.0-47.0) L 11/13/22 06:59 MCV 87.9 fL (80.0-100.0) 11/13/22 06:59 MCH 29.6 pg (25.0-34.0) 11/13/22 06:59 MCHC 33.7 g/dL (32.0-36.0) 11/13/22 06:59 RDW Std Deviation 40.9 fL (36.4-46.3) 11/13/22 06:59 RDW Coeff of Tanna 12.7 % (11.5-14.5) 11/13/22 06:59 Plt Count 186 K/uL (130-400) 11/13/22 06:59 MPV 9.8 fL (9.4-12.4) 11/13/22 06:59 Immature Gran % (Auto) 0.7 % 11/13/22 06:59 Neut % (Auto) 81.6 % 11/13/22 06:59 Lymph % (Auto) 12.5 % 11/13/22 06:59 [place] % (Auto) 5.1 % 11/13/22 06:59 Eos % (Auto) 0.0 % 11/13/22 06:59 Baso % (Auto) 0.1 % 11/13/22 06:59 Neut # (Auto) 12.43 K/uL (1.40-6.50) H 11/13/22 06:59 Lymph # (Auto) 1.90 K/uL (1.2-3.4) 11/13/22 06:59 [place] # (Auto) 0.77 K/uL (0.11-0.59) H 11/13/22 06:59 Eos # (Auto) 0.00 K/uL (0-0.50) 11/13/22 06:59 Baso # (Auto) 0.01 K/uL (0-0.2) 11/13/22 06:59 Immature Gran # (Auto) 0.11 K/uL (0.01-0.20) 11/13/22 06:59 Sodium 135 mmol/L (136-145) L 11/13/22 06:59 Potassium 4.3 mmol/L (3.5-5.1) 11/13/22 06:59 Chloride 104 mmol/L (98-107) 11/13/22 06:59 Carbon Dioxide 25 mmol/L (21-32) 11/13/22 06:59 Anion Gap 6 (3-11) 11/13/22 06:59 BUN 14 mg/dl (6-23) 11/13/22 06:59 Creatinine 0.67 mg/dl (0.6-1.2) 11/13/22 06:59 Est Cr Clr Drug Dosing 78.3 ml/min 11/13/22 06:59 Est GFR ( Amer) 100.4 ml/min 11/13/22 06:59 Est GFR (Non-Af Amer) 86.6 ml/min 11/13/22 06:59 BUN/Creatinine Ratio 20.9 (10-20) H 11/13/22 06:59 Glucose 126 mg/dl (70-99(Fasting)) H 11/13/22 06:59 POC Glucose 103 mg/dl (70-99) H 11/12/22 10:37 Calcium 8.5 mg/dl (8.6-10.3) L 11/13/22 06:59 SARS-CoV-2, RNA, NAAT NEGATIVE (NEGATIVE) 11/12/22 Unknown Blood Type B Positive 11/12/22 10:22 Antibody Screen NEGATIVE 11/12/22 10:22 Crossmatch See Detail 11/12/22 10:22 Impressions Lumbar Spine X-Ray 11/12/22 00:00 FL lumbar spine 2-3V CLINICAL HISTORY: L3-L5 DECOMP/FUSION COMPARISON STUDY: None. FLUOROSCOPY TIME: 28 seconds. Ka, r: 31.53 mGy FLUOROSCOPIC IMAGES: 2 FINDINGS: Fluoroscopy was provided during L3-L4 discectomy with interbody spacer placement. Posterior decompression is noted. There are bilateral pedicle screws at the L3, L4 and L5 levels with interconnecting rods. IMPRESSION: Fluoroscopy provided during L3-L4 discectomy, and L3-L5 decompression and pedicle screw fusion. ACT 112: Negative or not required by law. Electronically signed by: Han Sevilla M.D. 11/12/2022 3:03 PM
[2022-11-14] MEDS: EZETIMIBE 10 MG TABLET PO SCH (20:30)
[2022-11-14] MEDS: CALCIUM CARBONATE 1250MG TAB PO SCH (20:30)
[2022-11-14] MEDS: DOCUSATE SODIUM/SENNA 50/8.6MG TAB PO SCH (20:31)
[2022-11-14] MEDS: GABAPENTIN 300 MG CAP PO SCH (20:31)
[2022-11-14] MEDS: LORazepam 0.5 MG TAB PO PRN (21:40)
[2022-11-15] MEDS: POLYETHYLENE (MIRALAX) 17 GM PACK PO SCH (06:08)
[2022-11-15] MEDS: dexAMETHasone 6 MG in SYRINGE 0 ML IV SCH (07:47)
[2022-11-15 08:31] LABS: Basophils # (auto) 0.03 K/uL (0-0.2); Basophils % (auto) 0.2 %; Eosinophils # (auto) 0.04 K/uL (0-0.50); Eosinophils % (auto) 0.3 %; Hematocrit (blood only) 32.1 % (37.0-47.0); Hemoglobin 10.8 g/dl (12.0-16.0); Immature Granulocytes # (auto) 0.08 K/uL (0.01-0.20); Immature Granulocytes % (auto) 0.6 %; Lymphocytes # (auto) 3.73 K/uL (1.2-3.4); Lymphocytes % (auto) 27.2 %; Mean Corpuscular Hgb Conc 33.6 g/dL (32.0-36.0); Mean Corpuscular Volume 89.2 fL (80.0-100.0); Mean Platelet Volume 10.1 fL (9.4-12.4); Monocytes # (auto) 1.03 K/uL (0.11-0.59); Monocytes % (auto) 7.5 %; Neutrophils # (auto) 8.82 K/uL (1.40-6.50); Neutrophils % (auto) 64.2 %; Platelet Count 145 K/uL (130-400); RDW Coefficient of Variation 13.1 % (11.5-14.5); RDW Standard Deviation 42.9 fL (36.4-46.3); White Blood Count 13.73 K/ul (4.8-10.8)
--- NOTE | 2022-11-15 08:34 | Orthopedic Progress Note ---
Date of Service November 15, 2022 Assessment & Plan (1) Neurogenic claudication due to lumbar spinal stenosis: Plan: ot consult may shower today Admission and Anticipated Discharge Date Admission Date: November 12, 2022 Subjective patient's back pain is controlled leg pain improved Physical Exam Physical Exam: Patient is comfortable. Patient is good strength testing. Results & Data Vital Signs (Past 12 Hours) Vital Signs Temp Pulse Resp BP Pulse Ox O2 Del Method 11/15/22 07:10 36.4 C L 62 14 123/79 95 Room Air 11/14/22 21:43 36.4 C L 61 18 125/71 96 Room Air
[2022-11-15 08:54] LABS: BUN Creatinine Ratio 24.6 (10-20); Calcium 8.6 mg/dl (8.6-10.3); Est GFR (African American) 103.5 ml/min; Est GFR (Non-African American) 89.3 ml/min; Potassium 3.8 mmol/L (3.5-5.1)
[2022-11-15] MEDS: traMADol HCL 50 MG TABLET PO PRN ×2 (09:39→22:04)
--- NOTE | 2022-11-15 15:22 | Hospitalist Progress Note ---
Date of Service November 15, 2022 Assessment & Plan (1) Neurogenic claudication due to lumbar spinal stenosis: (2) Acute blood loss anemia: Plan: POD#3 L2-S1 decompression and fusion by Dr. Christensen Hg 11.8 --> 10.8 asymptomatic stable overall monitor closely (3) Prediabetes: Plan: Hgb A1c 6.0 10/2022 BSG 110 - 126 (4) HLD (hyperlipidemia): Plan: Continue Zetia DVT PROPHYLAXIS TEDs/SCDs as per spine Ortho Admission and Anticipated Discharge Date Admission Date: November 12, 2022 Subjective ff up s/p back surgery, etc seen resting in chair, comfortable in good spirits states she feels fine overall back pain well controlled ambulating in the room fine no chest pain, dyspnea, palpitations, dizziness no other symptoms Review of Systems Review of Systems: all noted and negative except for above Physical Exam Physical Exam: General- oriented x 3, not in distress, speaks in sentences with no effort or accessory muscle use Eyes- anicteric Neck- no JVD Lungs- clear breath sounds bilaterally, no rales/wheezes Heart- normal rate, regular rhythm; no murmurs Abdomen- normal bowel sounds, nondistended, soft, nontender Extremities- no pretibial edema, no calf tenderness Neuro- alert, oriented x 3; no gross focal neurologic deficits Skin- warm & dry Results & Data Results & Data Vital Signs (Past 12 Hours) Vital Signs Temp Pulse Resp BP Pulse Ox O2 Del Method 11/15/22 14:37 36.9 C 63 14 123/72 94 Room Air 11/15/22 07:10 36.4 C L 62 14 123/79 95 Room Air all noted and reviewed including below
[2022-11-15] MEDS: GABAPENTIN 300 MG CAP PO SCH (20:14)
[2022-11-15] MEDS: DOCUSATE SODIUM/SENNA 50/8.6MG TAB PO SCH (20:14)
[2022-11-15] MEDS: CALCIUM CARBONATE 1250MG TAB PO SCH (20:14)
[2022-11-15] MEDS: EZETIMIBE 10 MG TABLET PO SCH (20:14)
[2022-11-15] MEDS: LORazepam 0.5 MG TAB PO PRN (22:04)
[2022-11-16 08:09] VITALS: BP 121/77; PULSE 61; TEMP 97.5; O2SAT 93
[2022-11-16 10:16] LABS: Basophils # (auto) 0.02 K/uL (0-0.2); Basophils % (auto) 0.1 %; Eosinophils # (auto) 0.05 K/uL (0-0.50); Eosinophils % (auto) 0.3 %; Hematocrit (blood only) 35.2 % (37.0-47.0); Hemoglobin 11.7 g/dl (12.0-16.0); Immature Granulocytes # (auto) 0.15 K/uL (0.01-0.20); Lymphocytes # (auto) 4.24 K/uL (1.2-3.4); Lymphocytes % (auto) 27.9 %; Mean Corpuscular Hemoglobin 29.8 pg (25.0-34.0); Mean Corpuscular Hgb Conc 33.2 g/dL (32.0-36.0); Mean Corpuscular Volume 89.8 fL (80.0-100.0); Monocytes % (auto) 5.3 %; Neutrophils # (auto) 9.95 K/uL (1.40-6.50); Neutrophils % (auto) 65.4 %; Platelet Count 164 K/uL (130-400); RDW Standard Deviation 42.4 fL (36.4-46.3); Red Blood Count 3.92 M/uL (4.20-5.40); White Blood Count 15.21 K/ul (4.8-10.8)
--- NOTE | 2022-11-16 10:18 | Discharge Summary ---
Date of Service November 16, 2022 Admission HPI Per Admitting Provider This is a 72-year-old female presents with chronic persistent back and bilateral leg pain after failing extensive course of nonoperative care is here for surgical invention. Principal Diagnosis Lumbar spinal stenosis with neurogenic claudication Discharge Data Allergies Allergy/AdvReac Type Severity Reaction Status Date / Time [id number] Reductase AdvReac Intermediate mood swings Verified 11/12/22 10:37 Inhibitor Consultations 11/12/22 17:18 Consult Hospitalist Routine Procedures Performed Operation Date: 11/12/22 11:45 Actual Procedures p L3-L5 Decompression and Fusion, Spinal Cord Monitoring, Placement of Interbody L3-L4, Application of DuraGen and DuraSeal(Not Applicable) - Krzysztof Christensen DO Ordered Studies 11/12/22 FL lumbar spine 2-3V Routine Hospital Course (1) Neurogenic claudication due to lumbar spinal stenosis: Patient went lumbar decompression fusion tolerated as well as taken orthopedic for postoperative. Postop day 1 we maintain bedrest initiating physical therapy postop day 2 3 and Occupational Therapy. She tolerated well. Leg pain improved. X strength testing. Subsequent discharge home. Discharge orders instructions found in chart for further review. Total Time Total Time Spent Total Time Spent (In Minutes): 20 minutes Discharge Plan Discharge Items Patient Disposition: Home - Self-Care Reason For Visit: Spondylolisthesis, Lumbar Region Discharge Diagnosis: Lumbar spinal stenosis with neurogenic claudication Activity: As commented below Non-emergency contact: Primary Care Provider Call non-emergency contact if: you have any medication questions Follow-up/Referrals: Lyudmila Thibodeaux DO [Primary Care Provider] - Diet: Regular Addtl Attending Provider Instructions: ACTIVITY RECOMMENDATIONS: SELF CARE INSTRUCTIONS AFTER THORACIC/LUMBAR FUSIONS 1. You may walk to your tolerance. It is good exercise for your legs and back. Expect some back and intermittent leg aches and pains. 2. You may perform "counter-top" level activities (make a sandwich, marly with a project, etc.). 3. No bending or lifting of more than 10 pounds or back twisting of any nature (roll like a log when turning in bed). 4. You may ride in a car for 20-30 minutes at a time. No driving until after your first visit with your doctor. 5. Frequent changes of position and restricting sitting to 30 minutes at a time will help limit the amount of back spasms and stiffness you may experience. 6. You may discontinue the use of ambulatory aids (cane, crutches, etc.) once your strength and confidence allow. 7. You may social science instructor the shower and let water strike your incision when you arrive home at least once daily. Do not take a tub bath, sit in a hot tub or go into a swimming pool until after your first recheck in the office. SPECIAL CARE INSTRUCTIONS: VERY IMPORTANT TO READ AND REVIEW A. Your surgical incision has been closed with a cosmetic suture under the skin that will dissolve in about 6 weeks. In 14 days, you can use a pair of clean scissors and cut the suture that is left outside of the skin at the ends of your incision. 1. The small skin tapes can be removed 7 days after surgery if they have not fallen off by that point. 2. You may keep the wound open to air as much as possible to promote healing after post-op day number 5 unless told otherwise by your doctor. 3. If you think the wound looks like it is becoming infected (redness or worsening drainage) and/or you are experiencing fever, chill or worsening back pain and muscle spasms, contact the office so that we may evaluate you as soon as possible. B. Complications are uncommon, but please contact us if you have any signs or symptoms of: 1. wound infection (fever higher than 102.5 degrees F, redness, separation of wound, drainage, or increasing pain from the incision) 2. blood clots in legs (pain, swelling, redness and warmth in legs) 3. urinary tract infection (fever higher than 102.5 degrees F, burning upon urination or increased frequency of urination) 4. nerve problems (inability to walk on your toes or heels, numbness, loss of bowel or bladder control) 5. any other symptoms that concern you C. Please call the office at if you have any concerns or questions about your operation or recovery. D. No smoking! Smoking drastically decreases the chance of a solid fusion. E. Do not take any anti-inflammatory medications (Indocin, Advil, Motrin, Aspirin, Naprosyn, etc.) as these may inhibit the chance of a solid fusion. Tylenol is okay to take for pain. MANAGING PAIN AFTER SPINAL SURGERY 1. Narcotic medication is intended for short-term use and will be provided for surgical pain. Surgical pain usually lasts for a period of 4-6 weeks. Narcotic medication includes Percocet, Vicodin, Darvocet, Tylenol #3 or Lortab. 2. Longer-term pain is more appropriately treated with non-narcotic medication such as Tylenol ES. 3. Muscle spasm is not appropriately treated with narcotics. Muscle relaxers such as Soma, Flexeril or Skelaxin can be used along with Tylenol ES. 4. Remember that we all live with some "aches and pains". This is not unusual or uncommon after an injury or as we get older. a. Back pain is expected and may include muscle spasms for 4 to 6 weeks after surgery. The pain should gradually improve. If the pain worsens for no apparent reason, please contact the office. b. Intermittent leg pain may also be experienced and should not be concerned about unless it worsens for no apparent reason. If so, please contact the office. 5. We will provide appropriate medication within the normal guidelines of their prescribed use. We will also be very cautious and aware of potential abuse and extended duration of patients' medication needs. a. Pain medications are for your comfort and to assist with sleep and rest so that the tissue can heal. They are not provided in order to return to normal activity and should not be used through the day. To do so or worsening pain at night can result from ongoing tissue damage and development of tolerance to the prescribed medicine. 6. Please allow 2-3 days to process refills. Prescriptions will not be mailed but must be picked up at the office. FOLLOW UP VISIT: Keep your scheduled follow-up appointment. Any questions, please call the office at . Pending Studies at Discharge: No Stand-Alone Forms: My [employer], Smoking Cessation Medications and DC Order Prescriptions: New tramadol 50 mg tablet 50 mg PO Q6H PRN (Reason: pain, moderate) Qty: 30 0RF oxycodone 5 mg tablet 5 mg PO Q6H PRN (Reason: pain) Qty: 30 0RF Continued calcium carbonate [Calcium 500] 500 mg calcium (1,250 mg) Tablet 500 mg PO HS Hair,Skin and Nails Tablet 1 tab PO HS cranberry 500 mg Capsule 500 mg PO HS [place]-3 350 mg-235 mg- 90 mg-597 mg Capsule,Delayed Release(Dr/Ec) 1 cap PO HS black cohosh 1 cap PO DAILY PRN (Reason: IRRITATED) diphenhydramine HCl [Benadryl] 25 mg Capsule 25 mg PO HS gabapentin 300 mg Capsule 300 mg PO HS ezetimibe [Zetia] 10 mg Tablet 10 mg PO HS [id number]-Ca carb-vit K 18 mg iron-400 mcg-500 mg Tablet 1 tab PO HS turmeric 400 mg Capsule 400 mg PO HS Discharge Orders: Discharge Order (Routine); Ordered 11/16/22 Ordered By: Krzysztof Christensen Admission Data Admit Date/Time: 11/12/22 15:19 Attending Provider: Krzysztof Christensen Admit Provider: Krzysztof Christensen Primary Care Provider: Lyudmila Thibodeaux Other Providers: Marla Lubin ; Lucas Brooke ; Abiodun Smith
[2022-11-16] MEDS: traMADol HCL 50 MG TABLET PO PRN (12:37)
--- NOTE | 2022-11-16 16:26 | Hospitalist Progress Note ---
Date of Service November 16, 2022 Assessment & Plan (1) Neurogenic claudication due to lumbar spinal stenosis: (2) Acute blood loss anemia: Plan: POD#3 L2-S1 decompression and fusion by Dr. Christensen Hg 11.8 --> 10.8--> 11.7 asymptomatic stable overall ok for discharge from the medical standpoint (3) Prediabetes: Plan: Hgb A1c 6.0 10/2022 (4) HLD (hyperlipidemia): Plan: Continue Zetia DVT PROPHYLAXIS TEDs/SCDs as per spine Ortho Admission and Anticipated Discharge Date Admission Date: November 12, 2022 Subjective ff up for s/p back surgery, etc seen resting in bed, comfortable states she feels fine overall back pain manageable no chest pain, dyspnea, palpitations, dizziness no other symptoms states she is ready for discharge today Review of Systems Review of Systems: all noted and negative except for above Physical Exam Physical Exam: General- oriented x 3, not in distress, speaks in sentences with no effort or accessory muscle use Eyes- anicteric Neck- no JVD Lungs- clear breath sounds bilaterally, no rales/wheezes Heart- normal rate, regular rhythm; no murmurs Abdomen- normal bowel sounds, nondistended, soft, nontender Extremities- no pretibial edema, no calf tenderness Neuro- alert, oriented x 3; no gross focal neurologic deficits Skin- warm & dry Results & Data Results & Data Vital Signs (Past 12 Hours) Vital Signs Temp Pulse Resp BP Pulse Ox O2 Del Method 11/16/22 10:39 36.4 C L 61 16 121/77 93 11/16/22 08:05 36.4 C L 61 16 121/77 93 Room Air all noted and reviewed including below
== END 2022-11-16 13:19 | disposition home or self-care (01) | DRG 454 ==
LOC: ASU 10:10 → 3W 15:19